=== PATIENT | male | born 1975 | race Caucasian/White ===

== ENCOUNTER 2017-05-04 07:22 | Inpatient (IN) | payer MEDICAID ==
--- NOTE | 2017-05-04 07:31 | ER Document Report ---
ED Dizziness/Weakness - General Stated Complaint: POSSIBLE OVERDOSE Time Seen by Provider: 05/04/17 07:28 Mode of Arrival: Medic Information source: Patient Notes: 41yo male disability for epilepsia c/o weakness in arms and legs, dizzy when he sits up, scarey feeling scared. Fell forward in house onto concrete slab this morning. His alled the rescue squad. Had a spell yesterday afternoon felt he was going to have a seizure-dizziness which he attributes to going to have a seizure. [phone]. Took 4 extra 200mg tegretol since yesterday afternoon. Fell out of bed last night and hit right side of face. Drinks 12 pack about every 3 days, night before last. Hx non compliance with his medication. TRAVEL OUTSIDE OF THE [place] IN LAST 30 DAYS: No - Related Data Allergies/Adverse Reactions: Shellfish * [Shellfish] Adverse Reaction (Verified 09/23/15 14:34) Past Medical History - General Information source: Patient - Social History Smoking Status: Current Every Day Smoker Frequency of alcohol use: every 3 days Lives with: Spouse/Significant other Family History: Reviewed & Not Pertinent Pulmonary Medical History: Reports: Hx Asthma Neurological Medical History: Reports: Hx Seizures Surgical Hx: Negative - Immunizations Hx Diphtheria, Pertussis, Tetanus Vaccination: Yes Review of Systems - Review of Systems Constitutional: No symptoms reported EENT: No symptoms reported Cardiovascular: No symptoms reported Respiratory: No symptoms reported Gastrointestinal: No symptoms reported Genitourinary: No symptoms reported Male Genitourinary: No symptoms reported Musculoskeletal: No symptoms reported Skin: No symptoms reported Hematologic/Lymphatic: No symptoms reported Neurological/Psychological: See HPI Physical Exam - Vital signs Vitals: Pulse Ox 97 05/04/17 07:25 Interpretation: Normal - General General appearance: Alert, Other - looks dry - HEENT Head: Normocephalic, Atraumatic Eyes: Normal Conjunctiva: Normal Pupils: PERRL Mucous membranes: Dry Pharynx: Normal Neck: Supple. No: Lymphadenopathy - Respiratory Respiratory status: No respiratory distress Chest status: Nontender Breath sounds: Normal Chest palpation: Normal - Cardiovascular Rhythm: Regular Heart sounds: Normal auscultation Murmur: No - Abdominal Inspection: Normal Distension: No distension Bowel sounds: Normal Tenderness: Nontender. No: Tender Organomegaly: No organomegaly - Back Back: Normal, Nontender - Extremities General upper extremity: Normal inspection, Nontender, Normal color, Normal ROM , Normal temperature General lower extremity: Normal inspection, Nontender, Normal color, Normal ROM , Normal temperature, Normal weight bearing. No: Jade's sign - Neurological Neuro grossly intact: Yes Cognition: Normal Orientation: AAOx4 Chas Coma Scale Eye Opening: Spontaneous Chas Coma Scale Verbal: Oriented [place] Coma Scale Motor: Obeys Commands Chas Coma Scale Total: 15 Speech: Normal Motor strength normal: LUE, RUE, LLE, RLE Sensory: Normal - Psychological Associated symptoms: Flat affect - slurred speech but oriented - Skin Skin Temperature: Warm Skin Moisture: Dry Skin Color: Normal Course - Re-evaluation Re-evalutation: 05/04/17 08:49 spoke with poisen control, do not give activated charcoal. Serial tegretaol levels to see peak and decline. monitor for 6 hours until level down to therapeutic. Cardiac monitoring, repeat ekg if abnl heartrate. benzso if seizure. here now, she thinks he only took 2 pills. 05/04/17 10:22 dr payton will admit to telemetry inpatient. no further orders. pt speech less slurred at this time. CT negative.2nd tegretol level is greater than 20 which is the highest that the lab will report out. - Vital Signs Vital signs: Temp Pulse Resp BP Pulse Ox 97.8 F 96 16 120/74 96 05/04/17 07:28 05/04/17 07:28 05/04/17 09:41 05/04/17 09:41 05/04/17 09:41 - Laboratory Result Diagrams: 05/04/17 07:28 05/04/17 07:28 Laboratory results interpreted by me: 05/04/17 05/04/17 05/04/17 07:28 07:28 07:28 WBC 11.7 H RDW 14.3 H Seg Neutrophils % 84.9 H Lymphocytes % 9.0 L Absolute Neutrophils 9.9 H Sodium 134.9 L Calcium 8.2 L Urine Ketones Salicylates Acetaminophen Carbamazepine > 20.0 H* 05/04/17 05/04/17 05/04/17 07:28 09:26 09:36 WBC RDW Seg Neutrophils % Lymphocytes % Absolute Neutrophils Sodium Calcium Urine Ketones TRACE H Salicylates < 1.0 L Acetaminophen < 10 L Carbamazepine > 20.0 H* Discharge - Discharge Clinical Impression: tegretol overdose Condition: Stable Disposition: ADMITTED INPATIENT Admitting Provider: Hospitalist Unit Admitted: Telemetry Referrals: LOCALMD,NO [Primary Care Provider] - Follow up as needed
[2017-05-04 07:39] LABS: ABSOLUTE BASOPHILS # (AUTO) 0.1 10^3/uL (0.0-0.2); ABSOLUTE LYMPHOCYTES (AUTO) 1.1 10^3/uL (0.5-4.7); ABSOLUTE MONOCYTES (AUTO) 0.6 10^3/uL (0.1-1.4); ABSOLUTE NEUT (AUTO) 9.9 10^3/uL (1.7-8.2); BASOPHILS % (AUTO) 0.6 % (0-2); EOSINOPHILS % (AUTO) 0.1 % (0-6); HEMATOCRIT 47.1 % (37.9-51.0); HEMOGLOBIN 16.1 g/dL (13.5-17.0); HGB HCT DIFFERENCE 1.2; MEAN CORPUSCULAR HEMOGLOBIN 30.5 pg (27.0-33.4); MEAN CORPUSCULAR HGB CONC 34.3 g/dL (32.0-36.0); MEAN CORPUSCULAR VOLUME 89 fl (80-97); MONOCYTES % (AUTO) 5.4 % (3-13); RED BLOOD COUNT 5.29 10^6/uL (4.35-5.55); RED CELL DISTRIBUTION WIDTH 14.3 % (11.5-14.0); SEGMENTED NEUTROPHILS % (AUTO) 84.9 % (42-78); WHITE BLOOD COUNT 11.7 10^3/uL (4.0-10.5)
[2017-05-04] MEDS ORDERED: NORMAL SALINE 1000 ML 1,000 ML IV ONE (07:39)
[2017-05-04 07:53] LABS: ALANINE AMINOTRANSFERASE 36 U/L (21-72); ALBUMIN 3.9 g/dL (3.5-5.0); ALKALINE PHOSPHATASE 63 U/L (38-126); ANION GAP 8 (5-19); ASPARTATE AMINO TRANSFERASE 29 U/L (17-59); BILIRUBIN,DIRECT 0.4 mg/dL (0.0-0.4); BILIRUBIN,TOTAL 0.6 mg/dL (0.2-1.3); BLOOD UREA NITROGEN 14 mg/dL (7-20); CALCIUM 8.2 mg/dL (8.4-10.2); CARBON DIOXIDE 27 mmol/L (22-30); CHLORIDE 100 mmol/L (98-107); CREATININE RESULT 0.64 mg/dL (0.52-1.25); GLUCOSE 109 mg/dL (75-110); POTASSIUM 3.8 mmol/L (3.6-5.0); SODIUM 134.9 mmol/L (137-145); TOTAL PROTEIN 6.4 g/dL (6.3-8.2)
--- NOTE | 2017-05-04 08:21 | RADIOLOGY REPORT (SQ) ---
EXAM DESCRIPTION: CT HEAD WITHOUT COMPLETED DATE/TIME: 05/04/2017 8:07 am REASON FOR STUDY: dizzy, fell out of bed, hir right side face. COMPARISON: None. TECHNIQUE: Axial images acquired through the brain without intravenous contrast. Images reviewed wi th bone, brain and subdural windows. Images stored on PACS. All CT scanners at this facility use dose modulation, iterative reconstruction, and/or weight based d osing when appropriate to reduce radiation dose to as low as reasonably achievable (ALARA). [facility]: Dose Right [facility]: CareDose [facility]: Dose Right [facility]: Teradose 4D [facility]: Smart Advanced ICU Care RADIATION DOSE: Up-to-date CT equipment and radiation dose reduction techniques were employed. CTDIv ol: 64.6 mGy. DLP: 1163 mGy-cm. mGy. LIMITATIONS: Motion artifact FINDINGS: VENTRICLES: Normal size and contour. CEREBRUM: No masses. No hemorrhage. No midline shift. Normal knott/white matter differentiation. N o evidence for acute infarction. Lacunar infarct right frontal deep periventricular white matter, ax ial image 21. CEREBELLUM: No masses. No hemorrhage. No alteration of density. No evidence for acute infarction. EXTRAAXIAL SPACES: No fluid collections. No masses. ORBITS AND GLOBE: No intra- or extraconal masses. Normal contour of globe without masses. CALVARIUM: No fracture. PARANASAL SINUSES: Opacified left maxillary sinus SOFT TISSUES: No mass or hematoma. OTHER: No other significant finding. IMPRESSION: Motion artifact No acute findings. Punctate low-attenuation right frontal deep periventricular white matter, likely old encephalomalacia No acute calvarial fracture Opacified left maxillary sinus TECHNICAL DOCUMENTATION: JOB ID: [id number] Quality ID # [id number]: Final reports with documentation of one or more dose reduction techniques (e.g., Au tomated exposure control, adjustment of the mA and/or kV according to patient size, use of iterative reconstruction technique) 2010 [employer]- All Rights Reserved
--- NOTE | 2017-05-04 08:46 | EKG REPORT ---
SEVERITY:- BORDERLINE ECG - SINUS RHYTHM PROBABLE LEFT ATRIAL ABNORMALITY : Confirmed by: Luanne Zhang 04-May-2017 08:45:22
[2017-05-04 09:35] LABS: TROPONIN I < 0.012 ng/mL
[2017-05-04 09:45] LABS: APPEARANCE,URINE CLEAR; BILIRUBIN,URINE NEGATIVE (NEGATIVE); GLUCOSE, URINE NEGATIVE (NEGATIVE); KETONES,URINE TRACE mg/dL (NEGATIVE); LEUKOCYTE ESTERASE,URINE NEGATIVE (NEGATIVE); NITRITE,URINE NEGATIVE (NEGATIVE); PROTEIN,URINE NEGATIVE (NEGATIVE); URINE SPECIFIC GRAVITY 1.018; UROBILINOGEN,URINE NEGATIVE mg/dL (<2.0)
[2017-05-04 10:03] LABS: URINE BARBITURATES SCREEN NEGATIVE; URINE METHADONE SCREEN NEGATIVE; URINE OPIATES LOW NEGATIVE; URINE PHENCYCLIDINE SCREEN NEGATIVE
[2017-05-04] MEDS ORDERED: ACETAMINOPHEN 325 MG TABLET PO PRN (10:36)
[2017-05-04] MEDS ORDERED: ALBUTEROL SULFATE HFA (90 MCG/PUFF) 8 GM MDI (1 MDI/ER DISP) IH PRN (10:46)
[2017-05-04] MEDS ORDERED: IPRATROPIUM/ALBUTEROL 0.5-2.5 MG/3 ML AMPUL NEB SCH (12:00)
[2017-05-04] MEDS ORDERED: NORMAL SALINE 1000 ML 2,000 ML IV ONE (12:11)
[2017-05-04] MEDS ORDERED: POTASSI CL 20 MEQ/50 ML RIDER 20 MEQ/50 ML RTUPB IV SCH (12:14)
[2017-05-04] MEDS ORDERED: ASPIRIN 81 MG TABLET, CHEWABLE PO ONE (12:16)
[2017-05-04] MEDS ORDERED: MAGNESIUM HYDROXIDE SUSP 30 ML UDCUP PO PRN (12:16)
[2017-05-04] MEDS ORDERED: TRAMADOL HCL 50 MG TABLET PO PRN (12:16)
[2017-05-04] MEDS ORDERED: ONDANSETRON HCL INJ/PF 4 MG/2 ML SDV IV PRN (12:16)
[2017-05-04] MEDS ORDERED: LABETALOL HCL INJ 20 MG/4 ML DISP.SYRIN IV PRN (12:16)
[2017-05-04] MEDS: NORMAL SALINE 1000 ML 1,000 ML IV PRN ×2 (12:24→22:53)
[2017-05-04] MEDS ORDERED: NICOTINE 21 MG/24 HR PATCH.TD24 TD PRN (12:41)
--- NOTE | 2017-05-04 12:58 | RADIOLOGY REPORT (SQ) ---
EXAM DESCRIPTION: CHEST SINGLE VIEW COMPLETED DATE/TIME: 05/04/2017 12:36 pm REASON FOR STUDY: rul wheezes COMPARISON: September 2005 EXAM PARAMETERS: NUMBER OF VIEWS: One view. TECHNIQUE: Single frontal radiographic view of the chest acquired. RADIATION DOSE: NA LIMITATIONS: None. FINDINGS: LUNGS AND PLEURA: No opacities, masses or pneumothorax. No pleural effusion. MEDIASTINUM AND HILAR STRUCTURES: No masses. Contour normal. HEART AND VASCULAR STRUCTURES: Heart normal in size. Normal vasculature. BONES: No acute findings. HARDWARE: None in the chest. OTHER: No other significant finding. IMPRESSION: NO ACUTE RADIOGRAPHIC FINDING IN THE CHEST. TECHNICAL DOCUMENTATION: JOB ID: [id number]
[2017-05-04] MEDS ORDERED: DOXYCYCLINE HYCLATE 100 MG TABLET PO ONE (13:00)
[2017-05-04] MEDS ORDERED: MAGNESIUM SULFATE/D5W 1 GM/100 ML RTUPB IV ONE (13:00)
--- NOTE | 2017-05-04 13:34 | RADIOLOGY REPORT (SQ) ---
EXAM DESCRIPTION: CAROTID DOPPLER COMPLETED DATE/TIME: 05/04/2017 1:21 pm REASON FOR STUDY: slurred speech COMPARISON: None. TECHNIQUE: Grayscale ultrasound, Doppler velocity and spectra, and color Doppler images acquired of the extra-cranial carotid and vertebral arteries. Images stored on PACS. LIMITATIONS: None. FINDINGS: RIGHT CAROTID CCA Velocities: 139 cm/s ICA Velocities Peak systolic 74cm/s. End diastolic 29cm/s. Proximal ICA/CCA peak systolic ratio 0.7. Spectra normal. No significant plaque. LEFT CAROTID CCA Velocities: 147 cm/s ICA Velocities Peak systolic 83cm/s. End diastolic 31cm/s. Proximal ICA/CCA peak systolic ratio 0.7. Spectra normal. No significant plaque. VERTEBRAL ARTERIES: Antegrade flow. Normal waveforms. SUBCLAVIAN ARTERIES: No finding. OTHER: No other significant finding. IMPRESSION: NO HEMODYNAMICALLY SIGNIFICANT STENOSIS. COMMENT: Quality ID #[id number]: Velocity criteria are extrapolated from the diameter data as defined by t he Society of Radiologists in Ultrasound Consensus Conference. Radiology 2003: 229; 340-346. TECHNICAL DOCUMENTATION: JOB ID: [id number] [employer]- All Rights Reserved
[2017-05-04] MEDS ORDERED: METHYLPREDNISOLONE INJ 40 MG/1 ML SDV IV SCH (14:00)
[2017-05-04 14:38] LABS: CREATINE KINASE MB 1.84 ng/mL (<4.55)
[2017-05-04 14:39] LABS: TROPONIN I < 0.012 ng/mL
[2017-05-04] MEDS: METHYLPREDNISOLONE INJ 125 MG/2 ML SDV IV SCH ×2 (15:27→21:50)
[2017-05-04] MEDS: POTASSI CL 20 MEQ/50 ML RIDER 20 MEQ/50 ML RTUPB IV SCH ×2 (15:27→18:05)
[2017-05-04] MEDS: HEPARIN SOD (PORCINE) 5,000 UNIT/ML 1 ML SYRINGE SUBCUT SCH ×2 (15:28→21:50)
[2017-05-04] MEDS: IPRATROPIUM/ALBUTEROL 0.5-2.5 MG/3 ML AMPUL NEB SCH ×2 (16:28→19:46)
[2017-05-04] MEDS ORDERED: LORAZEPAM INJ 2 MG/1 ML VIAL IV PRN (17:18)
--- NOTE | 2017-05-04 17:23 | PDOC H&P ---
History of Present Illness Admission Date/PCP: 05/04/17 10:36 History of Present Illness: MARTA GARCIA is a 41 year old male who has a history of seizure disorder, COPD, and noncompliance presents to the emergency department with complaints of dizziness and weakness. Patient was feeling dizzy and took extra Tegretol as he feels that this is a precursor often to his seizure disorder. Patient according to his is quite noncompliant and review of his medication reveals that his last bottle of Tegretol was filled in November of this year. She reports that he often will not door forgets to take his medication but that his seizures have been well controlled since he has been on Tegretol. After taking additional dose of Tegretol this morning, he became dizzy, weak, with slurred speech. In the emergency department patient seemed to improve after receiving just 1 L of IV fluids. His QRS was less than 110 ms at 104. He is referred to the hospitalist for carbamazepine level greater than 20. Past Medical History Pulmonary Medical History: Reports: Chronic Obstructive Pulmonary Disease (COPD) Neurological Medical History: Reports: Seizures Past Surgical History Past Surgical History: Reports: None Social History Lives with: Spouse/Significant other Smoking Status: Current Every Day Smoker Cigarettes Packs Per Day: 1 Cigars Per Day: 1 Frequency of Alcohol Use: Heavy Amount of Alcoholic Beverages Per Day: patient drinks heavily several days a week Hx Recreational Drug Use: No Hx Prescription Drug Abuse: No - Advance Directive Resuscitation Status: Full Code Surrogate healthcare decision maker:: gm merrill, Family History Family History: DM Parental Family History Reviewed: Yes Children Family History Reviewed: Yes Sibling(s) Family History Reviewed.: Yes Medication/Allergy Home Medications: Albuterol Sulfate [Proair Hfa] 2 puff IH Q6HP PRN 05/04/17 Carbamazepine [Tegretol] 200 mg PO Q12 05/04/17 Allergies/Adverse Reactions: phenytoin [From Dilantin] Adverse Reaction (Severe, Verified 05/04/17 17:05) Agranulocystosis Shellfish * [Shellfish] Adverse Reaction (Verified 09/23/15 14:34) Review of Systems Constitutional: ABSENT: chills, fever(s), headache(s), weight gain, weight loss Eyes: ABSENT: visual disturbances Ears: ABSENT: hearing changes Cardiovascular: ABSENT: chest pain, dyspnea on exertion, edema, orthropnea, palpitations Respiratory: PRESENT: cough, sputum. ABSENT: dyspnea, hemoptysis Gastrointestinal: ABSENT: abdominal pain, constipation, diarrhea, hematemesis, hematochezia, nausea, vomiting Genitourinary: ABSENT: dysuria, hematuria Musculoskeletal: ABSENT: joint swelling Integumentary: ABSENT: rash, wounds Neurological: PRESENT: as per HPI, abnormal gait, abnormal speech, confusion, dizziness, lack of coordination. ABSENT: focal weakness, syncope Psychiatric: ABSENT: anxiety, depression, homidical ideation, suicidal ideation Endocrine: ABSENT: cold intolerance, heat intolerance, polydipsia, polyuria Hematologic/Lymphatic: ABSENT: easy bleeding, easy bruising Physical Exam Vital Signs: Temp Pulse Resp BP Pulse Ox 98.3 F 94 16 122/72 98 05/04/17 15:24 05/04/17 15:24 05/04/17 15:24 05/04/17 15:24 05/04/17 15:24 Intake & Output 05/03/17 05/04/17 05/05/17 06:59 06:59 06:59 Weight 95.527 kg General appearance: PRESENT: mild distress, obese, well-developed, well- nourished Head exam: PRESENT: atraumatic, normocephalic Eye exam: PRESENT: conjunctival injection - right lateral conjunctival hemorrhage, conjunctiva pink, EOMI, PERRLA. ABSENT: scleral icterus Ear exam: PRESENT: normal external ear exam Mouth exam: PRESENT: dry mucosa, neck supple, tongue midline Teeth exam: PRESENT: dental caries Neck exam: PRESENT: full ROM. ABSENT: carotid bruit, JVD, lymphadenopathy, meningismus, tenderness, thyromegaly, tracheal deviation Respiratory exam: PRESENT: prolonged expiratory phas, symmetrical, unlabored, wheezes - RUL. ABSENT: crackles, rales, rhonchi, tachypnea Cardiovascular exam: PRESENT: RRR, +S1, +S2. ABSENT: diastolic murmur, gallop, rubs, systolic murmur Pulses: PRESENT: normal dorsalis pedis pul Vascular exam: PRESENT: normal capillary refill GI/Abdominal exam: PRESENT: normal bowel sounds, soft. ABSENT: distended, firm , guarding, mass, organolmegaly, rebound, rigid, tenderness Rectal exam: PRESENT: deferred Extremities exam: PRESENT: full ROM. ABSENT: calf tenderness, clubbing, pedal edema, tenderness Neurological exam: PRESENT: alert, awake, oriented to person, oriented to place , oriented to time, oriented to situation, abnormal gait, other - slightly slurred speech, nystagmus +FTN with past pointing bilateral +Heel to espinoza bilaterally. ABSENT: CN II-XII grossly intact - nystagmus, motor sensory deficit, normal gait Psychiatric exam: PRESENT: anxious, appropriate affect, normal mood. ABSENT: homicidal ideation, suicidal ideation Skin exam: PRESENT: dry, intact, warm. ABSENT: cyanosis, rash Results Laboratory Results: 05/04/17 05/04/17 13:48 13:48 Creatine Kinase 216 H CK-MB (CK-2) 1.84 Troponin I < 0.012 05/04/17 05/04/17 05/04/17 07:28 07:28 07:28 WBC 11.7 H Hgb 16.1 Hct 47.1 Plt Count 206 Sodium 134.9 L BUN 14 Creatinine 0.64 Calcium 8.2 L TSH Free T4 Urine Ketones Urine WBC (Auto) Salicylates Urine Opiates Screen Urine Methadone Screen Acetaminophen Ur Barbiturates Screen Carbamazepine > 20.0 H* Ur Phencyclidine Scrn Ur Amphetamines Screen U Benzodiazepines Scrn Urine Cocaine Screen U Marijuana (THC) Screen Serum Alcohol 05/04/17 05/04/17 05/04/17 07:28 07:28 07:28 WBC Hgb Hct Plt Count Sodium BUN Creatinine Calcium TSH 0.39 L Free T4 Urine Ketones Urine WBC (Auto) Salicylates < 1.0 L Urine Opiates Screen Urine Methadone Screen Acetaminophen < 10 L Ur Barbiturates Screen Carbamazepine Ur Phencyclidine Scrn Ur Amphetamines Screen U Benzodiazepines Scrn Urine Cocaine Screen U Marijuana (THC) Screen Serum Alcohol < 10 05/04/17 05/04/17 05/04/17 07:28 09:26 09:26 WBC Hgb Hct Plt Count Sodium BUN Creatinine Calcium TSH Free T4 1.10 Urine Ketones TRACE H Urine WBC (Auto) 0 Salicylates Urine Opiates Screen NEGATIVE Urine Methadone Screen NEGATIVE Acetaminophen Ur Barbiturates Screen NEGATIVE Carbamazepine Ur Phencyclidine Scrn NEGATIVE Ur Amphetamines Screen NEGATIVE U Benzodiazepines Scrn NEGATIVE Urine Cocaine Screen NEGATIVE U Marijuana (THC) Screen NEGATIVE Serum Alcohol Impressions: Chest X-Ray 05/04/17 00:00 IMPRESSION: NO ACUTE RADIOGRAPHIC FINDING IN THE CHEST. Head CT 05/04/17 07:44 IMPRESSION: Motion artifact No acute findings. Punctate low-attenuation right frontal deep periventricular white matter, likely old encephalomalacia No acute calvarial fracture Opacified left maxillary sinus Carotid Doppler Study 05/04/17 12:19 IMPRESSION: NO HEMODYNAMICALLY SIGNIFICANT STENOSIS. Status: Imported from PACS Assessment & Plan - Diagnosis (1) Carbamazepine overdose of undetermined intent Qualifiers: Encounter type: initial encounter Qualified Code(s): T42.1X4A - Poisoning by iminostilbenes, undetermined, initial encounter Is this a current diagnosis for this admission?: Yes Plan: Based on discussion with and patient, feel this is likely unintentional. Place patient on telemetry and continue to monitor QRS. If patient's QRS becomes greater than 110 ms, will bolus with sodium bicarbonate. At this time, feel that much of his increased levels due to acute ingestion and will improve with holding this medication. Use Ativan for seizures as needed. Seizure precautions. Will monitor patient's mental status and ability to maintain his own airway. Continue supportive care. Poison control has been contacted and appreciate their care in this situation. Although based on patient's general poor health, have concerns that this could have been a CVA and will obtain an MRI. (2) Seizure disorder Is this a current diagnosis for this admission?: Yes Plan: Seizure precautions Ativan prn (3) COPD with exacerbation Is this a current diagnosis for this admission?: Yes Plan: Place patient on doxycycline and prednisone scheduled nebulized treatments (4) Alcohol abuse Is this a current diagnosis for this admission?: Yes Plan: Place on thiamine and folic acid Monitor for arrhythmia (5) Hyponatremia with extracellular fluid depletion Is this a current diagnosis for this admission?: Yes Plan: Continue IV fluids at this time. Patient is mildly dehydrated. (6) Tobacco abuse Is this a current diagnosis for this admission?: Yes Plan: Encouraged to stop greater than 3 min Nicotine patch prn (7) Medical non-compliance Is this a current diagnosis for this admission?: Yes Plan: Patient and admit to his non-compliance (8) Obesity (BMI 30.0-34.9) Is this a current diagnosis for this admission?: Yes - Time Time Spent: 50 to 70 Minutes Medications reviewed and adjusted accordingly: Yes Anticipated discharge: Home Within: within 48 hours, within 72 hours - Inpatient Certification Based on my medical assessment, after consideration of the patient's comorbidities, presenting symptoms, or acuity I expect that the services needed warrant INPATIENT care.: Yes I certify that my determination is in accordance with my understanding of Medicare's requirements for reasonable and necessary INPATIENT services [42 CFR 412.3e].: Yes Medical Necessity: Need For IV Fluids, Need For Continuous Telemetry Monitoring , Need for Neurological Checks Post Hospital Care: D/C Claims Collector Documentation
--- NOTE | 2017-05-04 17:33 | RADIOLOGY REPORT (SQ) ---
EXAM DESCRIPTION: MRI HEAD WITHOUT COMPLETED DATE/TIME: 05/04/2017 5:19 pm REASON FOR STUDY: nystagmus, cerebellar signs, slurred speech COMPARISON: CT brain 05/04/2017 TECHNIQUE: Multiplanar imaging includes non-contrasted T1, T2, FLAIR, and diffusion with ADC map seq uences. Images stored on PACS. LIMITATIONS: None. FINDINGS: ANATOMY: No developmental anomalies. Normal vascular flow voids. Pituitary fossa normal. CSF SPACES: Normal in size and contour. No hemorrhage. CEREBRUM: No MRI evidence of acute cerebral infarct. No acute intracranial hemorrhage, mass effect, or midline shift. There is an old punctate focus of white matter decreased T1 and bright T2/FLAIR si gnal on axial image 18. This correlates with a punctate focus of encephalomalacia on CT exam 05/04/20 17. This likely represents a tiny lacunar infarct or minimal gliosis along perivascular spaces. POSTERIOR FOSSA: No signal alteration. No hemorrhage. No edema, masses or mass effect. Internal riana tory canals, cerebello-pontine angles, mastoids normal. DIFFUSION IMAGING: Negative for acute or sub-acute infarction. ORBITS: No masses. Globes normal. PARANASAL SINUSES: Opacified left maxillary sinus, likely chronic. OTHER: No other significant finding. IMPRESSION: No MRI evidence of acute ischemic change. In particular, no posterior fossa acute infar ct or hemorrhage is present. Single focus white matter chronic altered signal in the right frontal deep periventricular region, ei ther tiny lacunar infarct or gliosis along perivascular spaces EVIDENCE OF ACUTE STROKE: NO. TECHNICAL DOCUMENTATION: JOB ID: [id number] [employer]- All Rights Reserved
[2017-05-04] MEDS ORDERED: THIAMINE HCL 100 MG TABLET PO ONE (18:00)
[2017-05-04] MEDS ORDERED: FOLIC ACID 1 MG TABLET PO ONE (18:00)
[2017-05-04] MEDS: DOCUSATE SODIUM 100 MG CAPSULE PO SCH (18:05)
--- NOTE | 2017-05-04 20:23 | EKG REPORT ---
SEVERITY:- NORMAL ECG - SINUS RHYTHM : Confirmed by: Luanne Zhang 04-May-2017 20:23:14
[2017-05-04 20:25] LABS: CREATINE KINASE MB 1.44 ng/mL (<4.55)
[2017-05-04 20:32] LABS: TROPONIN I < 0.012 ng/mL
[2017-05-04] MEDS: FAMOTIDINE 20 MG TABLET PO SCH (21:48)
[2017-05-04] MEDS: DOXYCYCLINE HYCLATE 100 MG TABLET PO SCH (21:48)
[2017-05-04] MEDS: FLUTICASONE NASAL SPRAY 50 MCG/SPRY 120 SPRAY/16 GM NASL SCH (21:50)
[2017-05-04] MEDS ORDERED: ATORVASTATIN CALCIUM 40 MG TABLET PO SCH (22:00)
[2017-05-04] MEDS ORDERED: LORATADINE 10 MG TABLET PO SCH (22:00)
[2017-05-05 02:32] LABS: CREATINE KINASE MB 0.97 ng/mL (<4.55)
[2017-05-05 02:35] LABS: TROPONIN I < 0.012 ng/mL
[2017-05-05] MEDS: HEPARIN SOD (PORCINE) 5,000 UNIT/ML 1 ML SYRINGE SUBCUT SCH (05:34)
[2017-05-05] MEDS: METHYLPREDNISOLONE INJ 125 MG/2 ML SDV IV SCH (05:34)
[2017-05-05 06:30] LABS: ABSOLUTE BASOPHILS # (AUTO) 0.1 10^3/uL (0.0-0.2); ABSOLUTE MONOCYTES (AUTO) 0.4 10^3/uL (0.1-1.4); ABSOLUTE NEUT (AUTO) 5.9 10^3/uL (1.7-8.2); BASOPHILS % (AUTO) 1.2 % (0-2); EOSINOPHILS % (AUTO) 0.1 % (0-6); HEMATOCRIT 43.1 % (37.9-51.0); HEMOGLOBIN 14.6 g/dL (13.5-17.0); HGB HCT DIFFERENCE 0.7; LYMPHOCYTES % (AUTO) 13.7 % (13-45); MEAN CORPUSCULAR HEMOGLOBIN 30.7 pg (27.0-33.4); MEAN CORPUSCULAR HGB CONC 33.8 g/dL (32.0-36.0); MEAN CORPUSCULAR VOLUME 91 fl (80-97); MONOCYTES % (AUTO) 5.5 % (3-13); RED BLOOD COUNT 4.74 10^6/uL (4.35-5.55); RED CELL DISTRIBUTION WIDTH 14.4 % (11.5-14.0); SEGMENTED NEUTROPHILS % (AUTO) 79.5 % (42-78); WHITE BLOOD COUNT 7.5 10^3/uL (4.0-10.5)
[2017-05-05 06:41] LABS: ALANINE AMINOTRANSFERASE 38 U/L (21-72); ALBUMIN 3.4 g/dL (3.5-5.0); ALKALINE PHOSPHATASE 57 U/L (38-126); ANION GAP 6 (5-19); ASPARTATE AMINO TRANSFERASE 20 U/L (17-59); BILIRUBIN,DIRECT 0.4 mg/dL (0.0-0.4); BILIRUBIN,TOTAL 0.6 mg/dL (0.2-1.3); BLOOD UREA NITROGEN 5 mg/dL (7-20); CALCIUM 8.7 mg/dL (8.4-10.2); CARBON DIOXIDE 26 mmol/L (22-30); CHLORIDE 106 mmol/L (98-107); CHOLESTEROL 146.21 mg/dL (0-200); CREATININE RESULT 0.63 mg/dL (0.52-1.25); Direct HDL 87 mg/dL (>40); GLUCOSE 121 mg/dL (75-110); MAGNESIUM 2.2 mg/dL (1.6-2.3); POTASSIUM 3.7 mmol/L (3.6-5.0); SODIUM 138.2 mmol/L (137-145); TOTAL PROTEIN 5.7 g/dL (6.3-8.2); TRIGLYCERIDES 43 mg/dL (<150)
[2017-05-05] MEDS: NORMAL SALINE 1000 ML 1,000 ML IV PRN (06:43)
[2017-05-05 06:52] LABS: DIRECT LDL 43 mg/dL (<100)
[2017-05-05] MEDS: IPRATROPIUM/ALBUTEROL 0.5-2.5 MG/3 ML AMPUL NEB SCH ×2 (08:01→12:07)
[2017-05-05] MEDS: FAMOTIDINE 20 MG TABLET PO SCH (10:00)
[2017-05-05] MEDS ORDERED: ASPIRIN 325 MG TABLET, ENT COATED PO SCH (10:00)
[2017-05-05] MEDS ORDERED: FOLIC ACID 1 MG TABLET PO SCH (10:00)
[2017-05-05] MEDS ORDERED: THIAMINE HCL 100 MG TABLET PO SCH (10:00)
[2017-05-05] MEDS: DOCUSATE SODIUM 100 MG CAPSULE PO SCH (10:57)
[2017-05-05] MEDS: FLUTICASONE NASAL SPRAY 50 MCG/SPRY 120 SPRAY/16 GM NASL SCH (11:00)
[2017-05-05] MEDS: DOXYCYCLINE HYCLATE 100 MG TABLET PO SCH (11:01)
[2017-05-05 11:41] VITALS: BP 120/70
--- NOTE | 2017-05-05 17:00 | PDOC DISCHARGE SUMMARY ---
General - Admit/Disc Date/PCP Admission Date/Primary Care Provider: 05/04/17 10:36 Discharge Date: 05/05/17 - Discharge Diagnosis (1) Carbamazepine overdose of undetermined intent Is this a current diagnosis for this admission?: Yes (2) Seizure disorder Is this a current diagnosis for this admission?: Yes (3) COPD with exacerbation Is this a current diagnosis for this admission?: Yes (4) Alcohol abuse Is this a current diagnosis for this admission?: Yes (5) Hyponatremia with extracellular fluid depletion Is this a current diagnosis for this admission?: Yes (6) Tobacco abuse Is this a current diagnosis for this admission?: Yes (7) Medical non-compliance Is this a current diagnosis for this admission?: Yes (8) Obesity (BMI 30.0-34.9) Is this a current diagnosis for this admission?: Yes - Additional Information Resuscitation Status: Full Code Discharge Diet: Cardiac Discharge Activity: Activity As Tolerated, No Driving Home Medications: Albuterol Sulfate [Proair HFA] 2 puff IH Q6HP PRN 05/04/17 Carbamazepine [Tegretol] 200 mg PO Q12 05/04/17 Albuterol Sulfate [Ventolin Hfa 8 gm Mdi (1 Mdi/ER Disp)] 2 puff IH Q6HP PRN #1 inhaler 05/05/17 Aspirin [Ecotrin 325 mg EC Tablet] 325 mg PO DAILY #90 tabec 05/05/17 Doxycycline Hyclate [Vibramycin 100 mg Tablet] 100 mg PO Q12 #20 tablet Fluticasone Propionate [Flonase Nasal Cerulean 50 Mcg/Cerulean 16 gm] 1 spray NASL Q12 #1 bot 05/05/17 Folic Acid [Folvite 1 mg Tablet] 1 mg PO DAILY #90 tablet 05/05/17 Ipratropium/Albuterol Sulfate [Duoneb 3 ml Ampul] 3 ml [facility] [id number] vial.neb Loratadine [Claritin 10 mg Tablet] 10 mg PO QHS #90 tablet 05/05/17 Prednisone 10 mg PO ASDIR PRN #1 tab.ds.pk 05/05/17 Thiamine HCl [Thiamine 100 mg Tablet] 100 mg PO DAILY #90 tablet 05/05/17 History of Present Illness History of Present Illness: MARTA GARCIA is a 41 year old male who has a history of seizure disorder, COPD, and noncompliance presents to the emergency department with complaints of dizziness and weakness. Patient was feeling dizzy and took extra Tegretol as he feels that this is a precursor often to his seizure disorder. Patient according to his is quite noncompliant and review of his medication reveals that his last bottle of Tegretol was filled in November of this year. She reports that he often will not door forgets to take his medication but that his seizures have been well controlled since he has been on Tegretol. After taking additional dose of Tegretol this morning, he became dizzy, weak, with slurred speech. In the emergency department patient seemed to improve after receiving just 1 L of IV fluids. His QRS was less than 110 ms at 104. He is referred to the hospitalist for carbamazepine level greater than 20. Hospital Course Hospital Course: Patient was monitored for any worsening of his condition including seizure or respiratory depression. Patient had none of these. Patient's QRS remained less than 110 ms. His carbamazepine level decreased to 8 and he was able to ambulate unassisted without any ataxia. MRI of the head revealed no acute infarction. Carotid Dopplers were normal. Patient COPD exacerbation improved with Solu-Medrol and nebulized treatments. Patient was advised to stop drinking alcohol and to stop smoking. He was advised to take his medications as they are prescribed to him and not in any other fashion. He is advised to follow with his primary care doctor within the week. Physical Exam Vital Signs: Temp Pulse Resp BP Pulse Ox 97.5 F 71 16 120/70 96 05/05/17 11:38 05/05/17 11:38 05/05/17 11:38 05/05/17 11:38 05/05/17 11:38 Intake & Output 05/04/17 05/05/17 05/06/17 06:59 06:59 06:59 Intake Total 4577 Output Total 2100 Balance 2477 Weight 96.1 kg Exam: General: Awake alert and oriented x3, no acute respiratory distress HEENT: Abrasion under right eye, PERRL, EOMI, oropharynx is moist, pink, no scleral icterus, no conjunctival injection Neck: No JVD, trachea midline Chest: Prolonged expiratory phase, clear to auscultation bilaterally, no wheezes rhonchi or rales CV: Regular rate and rhythm, normal S1 and S2, no murmur, rub, or gallop Abdomen: Soft, nontender to palpation, nondistended, active bowel sounds; no rebound, rigidity, or guarding Extremities: No cyanosis, clubbing or edema Neuro: Cranial nerves II through XII are grossly intact without focal deficits; awake alert and oriented x3 Psych: Normal mood and affect Results Laboratory Results: 05/05/17 06:21 05/05/17 06:21 05/05/17 05/05/17 06:21 06:21 WBC 7.5 RBC 4.74 Hgb 14.6 Hct 43.1 MCV 91 MCH 30.7 MCHC 33.8 RDW 14.4 H Plt Count 193 Seg Neutrophils % 79.5 H Lymphocytes % 13.7 Monocytes % 5.5 Eosinophils % 0.1 Basophils % 1.2 Absolute Neutrophils 5.9 Absolute Lymphocytes 1.0 Absolute Monocytes 0.4 Absolute Eosinophils 0.0 Absolute Basophils 0.1 Sodium 138.2 Potassium 3.7 Chloride 106 Carbon Dioxide 26 Anion Gap 6 BUN 5 L Creatinine 0.63 Est GFR ( Amer) > 60 Est GFR (Non-Af Amer) > 60 Glucose 121 H Calcium 8.7 Phosphorus 4.0 Magnesium 2.2 Total Bilirubin 0.6 AST 20 ALT 38 Alkaline Phosphatase 57 Total Protein 5.7 L Albumin 3.4 L Triglycerides 43 Cholesterol 146.21 LDL Cholesterol Direct 43 VLDL Cholesterol 9.0 L HDL Cholesterol 87 05/04/17 05/04/17 05/04/17 13:48 13:48 19:45 Creatine Kinase 216 H 222 H CK-MB (CK-2) 1.84 Troponin I < 0.012 05/04/17 05/05/17 05/05/17 19:45 01:36 01:36 Creatine Kinase 174 H CK-MB (CK-2) 1.44 0.97 Troponin I < 0.012 < 0.012 Impressions: Chest X-Ray 05/04/17 00:00 IMPRESSION: NO ACUTE RADIOGRAPHIC FINDING IN THE CHEST. Head MRI 05/04/17 00:00 IMPRESSION: No MRI evidence of acute ischemic change. In particular, no posterior fossa acute infarct or hemorrhage is present. Single focus white matter chronic altered signal in the right frontal deep periventricular region, either tiny lacunar infarct or gliosis along perivascular spaces EVIDENCE OF ACUTE STROKE: NO. Head CT 05/04/17 07:44 IMPRESSION: Motion artifact No acute findings. Punctate low-attenuation right frontal deep periventricular white matter, likely old encephalomalacia No acute calvarial fracture Opacified left maxillary sinus Carotid Doppler Study 05/04/17 12:19 IMPRESSION: NO HEMODYNAMICALLY SIGNIFICANT STENOSIS. Qualifiers PATEINT BEING DISCHARGED WITH ANY OF THE FOLLOWING DIAGNOSIS?: No Plan Time Spent: Less than 30 Minutes
== END 2017-05-05 12:30 | disposition home or self-care (01) | DRG 918 ==
LOC: ER 07:22 → EH 10:36 → UNDOADMIN 11:00 → EH 11:00 → 3S 13:21
PROVIDERS: ADMIT Family Medicine; ATTEND Family Medicine
PROC: 3E0234Z Introduction of Serum, Toxoid and Vaccine into Muscle, Percutaneous Approach (ICD-10-PCS; principal; 2017-05-04)
DX: T42.1X4A Poisoning by iminostilbenes, undetermined, initial encounter (principal); J44.1 Chronic obstructive pulmonary disease with (acute) exacerbation; E87.1 Hypo-osmolality and hyponatremia; G40.909 Epilepsy, unspecified, not intractable, without status epilepticus; F10.10 Alcohol abuse, uncomplicated; Y90.0 Blood alcohol level of less than 20 mg/100 ml; F17.210 Nicotine dependence, cigarettes, uncomplicated; E66.9 Obesity, unspecified; Z68.30 Body mass index [BMI] 30.0-30.9, adult; W01.0XXA Fall on same level from slipping, tripping and stumbling without subsequent striking against object, initial encounter; Y92.019 Unspecified place in single-family (private) house as the place of occurrence of the external cause; W06.XXXA Fall from bed, initial encounter; Y92.013 Bedroom of single-family (private) house as the place of occurrence of the external cause; Z91.013 Allergy to seafood; Z91.14 Patient's other noncompliance with medication regimen; Z79.82 Long term (current) use of aspirin; Z79.899 Other long term (current) drug therapy; Z88.8 Allergy status to other drugs, medicaments and biological substances
CPT/HCPCS: 36415; 70450; 70551; 71010; 80053; 80061; 80156; 80307; 81001; 82550; 82553; 83036; 83735; 84100; 84439; 84443; 84484; 85025; 93005; 93010; 93880; 94640; 96360; 99285; J1644; J2930; J3475; J3480; J3490; J7030; J7620

== ENCOUNTER 2018-06-14 14:47 | Emergency (ER) | payer MEDICAID ==
[2018-06-14] MEDS ORDERED: NORMAL SALINE 1000 ML 1,000 ML IV ONE (15:49)
[2018-06-14 15:55] LABS: ABSOLUTE BASOPHILS # (AUTO) 0.1 10^3/uL (0.0-0.2); ABSOLUTE EOSINOPHILS # (AUTO) 0.1 10^3/uL (0.0-0.6); ABSOLUTE LYMPHOCYTES (AUTO) 1.7 10^3/uL (0.5-4.7); ABSOLUTE MONOCYTES (AUTO) 0.8 10^3/uL (0.1-1.4); ABSOLUTE NEUT (AUTO) 6.7 10^3/uL (1.7-8.2); BASOPHILS % (AUTO) 0.7 % (0-2); EOSINOPHILS % (AUTO) 0.8 % (0-6); HEMATOCRIT 46.3 % (37.9-51.0); HEMOGLOBIN 15.8 g/dL (13.5-17.0); LYMPHOCYTES % (AUTO) 17.8 % (13-45); MEAN CORPUSCULAR HEMOGLOBIN 31.1 pg (27.0-33.4); MEAN CORPUSCULAR HGB CONC 34.1 g/dL (32.0-36.0); MEAN CORPUSCULAR VOLUME 91 fl (80-97); MONOCYTES % (AUTO) 8.8 % (3-13); PLATELET COUNT 235 10^3/uL (150-450); RED BLOOD COUNT 5.07 10^6/uL (4.35-5.55); SEGMENTED NEUTROPHILS % (AUTO) 71.9 % (42-78); TOTAL CELLS COUNTED % (AUTO) 100 %; WHITE BLOOD COUNT 9.3 10^3/uL (4.0-10.5)
[2018-06-14] MEDS ORDERED: CARBAMAZEPINE 200 MG TABLET PO ONE (15:55)
[2018-06-14] MEDS ORDERED: LORAZEPAM INJ 2 MG/1 ML VIAL IV ONE (15:56)
[2018-06-14] MEDS ORDERED: THIAMINE HCL 100 MG in NORMAL SALINE 50 ML IV ONE (15:56)
[2018-06-14] MEDS ORDERED: DIPH/PERTUSS(ACELL)/TETANUS VAC/PF 0.5 ML SYR (>=10YO) IM ONE (15:57)
[2018-06-14 16:01] LABS: ALANINE AMINOTRANSFERASE 30 U/L (21-72); ALBUMIN 4.4 g/dL (3.5-5.0); ALKALINE PHOSPHATASE 58 U/L (38-126); ANION GAP 11 (5-19); ASPARTATE AMINO TRANSFERASE 35 U/L (17-59); BILIRUBIN,DIRECT 0.5 mg/dL (0.0-0.4); BILIRUBIN,TOTAL 0.7 mg/dL (0.2-1.3); BLOOD UREA NITROGEN 14 mg/dL (7-20); CALCIUM 9.4 mg/dL (8.4-10.2); CARBON DIOXIDE 25 mmol/L (22-30); CHLORIDE 101 mmol/L (98-107); GLUCOSE 100 mg/dL (75-110); POTASSIUM 4.8 mmol/L (3.6-5.0); SODIUM 137.1 mmol/L (137-145)
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
--- NOTE | 2018-06-14 16:40 | RADIOLOGY REPORT (SQ) ---
EXAM DESCRIPTION: CT HEAD WITHOUT COMPLETED DATE/TIME: 06/14/2018 4:28 pm REASON FOR STUDY: delta ms COMPARISON: 05/04/2017 TECHNIQUE: Axial images acquired through the brain without intravenous contrast. Images reviewed wi th bone, brain and subdural windows. Additional sagittal and coronal reconstructions were generated. Images stored on PACS. All CT scanners at this facility use dose modulation, iterative reconstruction, and/or weight based d osing when appropriate to reduce radiation dose to as low as reasonably achievable (ALARA). [facility]: Dose Right [facility]: CareDose [facility]: Dose Right [facility]: Teradose 4D [facility]: Scratch Hard RADIATION DOSE: CT Rad equipment meets quality standard of care and radiation dose reduction techniq ues were employed. CTDIvol: 53.2 mGy. DLP: 964 mGy-cm. mGy. LIMITATIONS: None. FINDINGS: VENTRICLES: Normal size and contour. CEREBRUM: No masses. No hemorrhage. No midline shift. No evidence for acute infarction. Normal gra y/white matter differentiation. No areas of low density in the white matter. CEREBELLUM: No masses. No hemorrhage. No alteration of density. No evidence for acute infarction. EXTRAAXIAL SPACES: No fluid collections. No masses. ORBITS AND GLOBE: No intra- or extraconal masses. Normal contour of globe without masses. CALVARIUM: No fracture. PARANASAL SINUSES: Chronic opacification left maxillary sinus. SOFT TISSUES: No mass or hematoma. OTHER: No other significant finding. IMPRESSION: NORMAL BRAIN CT WITHOUT CONTRAST. EVIDENCE OF ACUTE STROKE: NO. COMMENT: Quality ID # 436: Final reports with documentation of one or more dose reduction techniques (e.g., Automated exposure control, adjustment of the mA and/or kV according to patient size, use of iterative reconstruction technique) TECHNICAL DOCUMENTATION: JOB ID: [id number] [employer]- All Rights Reserved Reading location - IP/workstation name: [email or web address]
--- NOTE | 2018-06-14 16:46 | RADIOLOGY REPORT (SQ) ---
EXAM DESCRIPTION: ANKLE LEFT COMPLETE COMPLETED DATE/TIME: 06/14/2018 4:36 pm REASON FOR STUDY: left ankle injury COMPARISON: None. NUMBER OF VIEWS: Four views. TECHNIQUE: AP, lateral, and two oblique radiographic images acquired of the left ankle. LIMITATIONS: None. FINDINGS: MINERALIZATION: Normal. BONES: No acute fracture or dislocation. No worrisome bone lesions. JOINTS: No effusions. SOFT TISSUES: No soft tissue swelling. No foreign body. OTHER: No other significant finding. IMPRESSION: NEGATIVE STUDY OF THE LEFT ANKLE. NO RADIOGRAPHIC EVIDENCE OF ACUTE INJURY. TECHNICAL DOCUMENTATION: JOB ID: [id number] [employer]- All Rights Reserved Reading location - IP/workstation name: [email or web address]
--- NOTE | 2018-06-14 16:47 | RADIOLOGY REPORT (SQ) ---
EXAM DESCRIPTION: CHEST SINGLE VIEW COMPLETED DATE/TIME: 06/14/2018 4:36 pm REASON FOR STUDY: sob COMPARISON: None. EXAM PARAMETERS: NUMBER OF VIEWS: One view. TECHNIQUE: Single frontal radiographic view of the chest acquired. RADIATION DOSE: NA LIMITATIONS: None. FINDINGS: LUNGS AND PLEURA: No opacities, masses or pneumothorax. No pleural effusion. MEDIASTINUM AND HILAR STRUCTURES: No masses. Contour normal. HEART AND VASCULAR STRUCTURES: Heart normal in size. Normal vasculature. BONES: No acute findings. HARDWARE: None in the chest. OTHER: No other significant finding. IMPRESSION: NO ACUTE RADIOGRAPHIC FINDING IN THE CHEST. TECHNICAL DOCUMENTATION: JOB ID: [id number] [employer]- All Rights Reserved Reading location - IP/workstation name: [email or web address]
[2018-06-14 19:44] VITALS: BP 134/85
[2018-06-14] MEDS ORDERED: CEPHALEXIN 500 MG CAPSULE PO ONE (19:52)
[2018-06-14] MEDS ORDERED: ALBUTEROL SULFATE HFA (90 MCG/PUFF) 8 GM MDI (1 MDI/ER DISP) IH PRN (19:52)
== END 2018-06-14 20:07 | disposition home or self-care (01) ==
LOC: ER 14:47
DX: R56.9 Unspecified convulsions (principal); T42.1X6A Underdosing of iminostilbenes, initial encounter; Z91.128 Patient's intentional underdosing of medication regimen for other reason; Y92.149 Unspecified place in prison as the place of occurrence of the external cause; Z91.14 Patient's other noncompliance with medication regimen; L03.90 Cellulitis, unspecified; S90.02XA Contusion of left ankle, initial encounter; S00.81XA Abrasion of other part of head, initial encounter; M25.572 Pain in left ankle and joints of left foot; V49.9XXA Car occupant (driver) (passenger) injured in unspecified traffic accident, initial encounter; F17.210 Nicotine dependence, cigarettes, uncomplicated; J44.9 Chronic obstructive pulmonary disease, unspecified; R05 Cough; Z23 Encounter for immunization
CPT/HCPCS: 99285; 90471; 96375; 96365; 36415; 83735; 85025; 80053; 73610; 71045; 70450; 90715; J3490 ×2; J2060; J3411

== ENCOUNTER 2018-06-20 11:02 | Emergency (ER) | payer MEDICAID ==
[2018-06-20 11:07] VITALS: BP 146/78
--- NOTE | 2018-06-20 12:00 | RADIOLOGY REPORT (SQ) ---
EXAM DESCRIPTION: CT CERVICAL SPINE WITHOUT COMPLETED DATE/TIME: 06/20/2018 11:33 am REASON FOR STUDY: Neck pain after fall, recent seizure COMPARISON: None. TECHNIQUE: Axial images acquired through the cervical spine without intravenous contrast. Images re viewed with lung, soft tissue and bone windows. Reconstructed coronal and sagittal MPR images review ed. Images stored on PACS. All CT scanners at this facility use dose modulation, iterative reconstruction, and/or weight based d osing when appropriate to reduce radiation dose to as low as reasonably achievable (ALARA). [facility]: Dose Right [facility]: CareDose [facility]: Dose Right [facility]: Teradose 4D [facility]: Smart [employer] RADIATION DOSE: CT Rad equipment meets quality standard of care and radiation dose reduction techniq ues were employed. CTDIvol: 18.9 mGy. DLP: 432 mGy-cm. mGy. LIMITATIONS: None. FINDINGS: ALIGNMENT: Anatomic. MINERALIZATION: Normal. VERTEBRAL BODIES: No fractures or dislocation. DISCS: Moderate loss of the disc height of C5-C6 with small subchondral geodes and small posterior ve rtebral body osteophytes result in mild osseous narrowing of the respective neural foramen. FACETS, LATERAL MASSES, POSTERIOR ELEMENTS: No fractures. No dislocation. No acute findings. HARDWARE: None in the spine. VISUALIZED RIBS: No fractures. LUNG APICES AND SOFT TISSUES: No significant or acute findings. OTHER: No other significant finding. IMPRESSION: 1. No acute fracture or dislocation. 2. Moderate degenerative disc disease of C5-C6. TECHNICAL DOCUMENTATION: JOB ID: [id number] Quality ID # [id number]: Final reports with documentation of one or more dose reduction techniques (e.g., Au tomated exposure control, adjustment of the mA and/or kV according to patient size, use of iterative reconstruction technique) 2010 [employer]- All Rights Reserved Reading location - IP/workstation name: [email or web address]
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
--- NOTE | 2018-06-20 12:04 | RADIOLOGY REPORT (SQ) ---
EXAM DESCRIPTION: SHOULDER LEFT 2 OR MORE VIEWS COMPLETED DATE/TIME: 06/20/2018 11:43 am REASON FOR STUDY: Left arm pain after fall, recent seizure COMPARISON: None. NUMBER OF VIEWS: Three views. TECHNIQUE: Internal rotation, external rotation, and Y view images acquired of the left shoulder. LIMITATIONS: None. FINDINGS: MINERALIZATION: Normal. BONES: No acute fracture or dislocation. No worrisome bone lesions. JOINTS: No dislocation. VISUALIZED LUNGS AND RIBS: Visualized lungs are clear. Multiple old left-sided rib fractures. SOFT TISSUES: No radiopaque foreign body. OTHER: No other significant finding. IMPRESSION: NEGATIVE STUDY OF THE LEFT SHOULDER. NO RADIOGRAPHIC EVIDENCE OF ACUTE INJURY. TECHNICAL DOCUMENTATION: JOB ID: [id number] [employer]- All Rights Reserved Reading location - IP/workstation name: [email or web address]
== END 2018-06-20 12:12 | disposition home or self-care (01) ==
LOC: ER 11:02
DX: M54.12 Radiculopathy, cervical region (principal); M25.512 Pain in left shoulder; M79.622 Pain in left upper arm; F17.200 Nicotine dependence, unspecified, uncomplicated; J44.9 Chronic obstructive pulmonary disease, unspecified
CPT/HCPCS: 72125; 99284

== ENCOUNTER 2020-01-15 14:39 | Emergency (ER) | payer SELFPAY ==
[2020-01-15] MEDS ORDERED: FENTANYL CITRATE INJ/PF 100 MCG/2 ML AMPUL IV ONE (15:28)
--- NOTE | 2020-01-15 15:30 | ER Document Report ---
ED General - General Chief Complaint: Flank Pain Stated Complaint: LEFT SIDE PAIN Time Seen by Provider: 01/15/20 14:50 Primary Care Provider: GADIEL BALDWIN MD [ACTIVE STAFF] - 01/16/20 KRISTI LINARES MD [Primary Care Provider] - 01/16/20 Mode of Arrival: Ambulatory Information source: Patient Notes: Patient presents complaining of left flank pain that wraps around to his abdomen and into the left side of his chest for the past 4 days. Patient states that pain is worse with movement and deep inspiration. Patient is unable to tolerate laying flat as this increases his pain. Patient denies any fever nausea or vomiting. Patient denies any urinary symptoms. Patient states that he did have a seizure about 10 days ago and is concerned that he may have fallen on the coffee table and injured himself. Patient states that he did have blood in his mouth as he had bit his tongue. Patient does have a history of seizure disorder. Patient states he has been compliant with taking his Tegretol. TRAVEL OUTSIDE OF THE [place] IN LAST 30 DAYS: No - HPI Onset: Other - 4 days Onset/Duration: Persistent Quality of pain: Sharp Pain Level: 5 Associated symptoms: Chest pain, Nonproductive cough, Hurts to breath. denies: Diarrhea, Fever, Nausea, Vomiting Exacerbated by: Movement, Coughing, Deep breathing Relieved by: Denies Similar symptoms previously: No Recently seen / treated by doctor: No - Related Data Allergies/Adverse Reactions: phenytoin [From Dilantin] Adverse Reaction (Severe, Verified 04/18/19 12:50) Agranulocystosis Shellfish * [Shellfish] Adverse Reaction (Verified 04/18/19 12:50) bee sting Allergy (Uncoded 04/18/19 12:50) Home Medications: Per patient verbal recall: Tegretol, Albulterol inhaler Past Medical History - General Information source: Patient - Social History Smoking Status: Current Every Day Smoker Frequency of alcohol use: Heavy Drug Abuse: None 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 denies: Fever, Recent illness EENT: No symptoms reported Cardiovascular: Chest pain Respiratory: Cough, Hurts to breathe Gastrointestinal: Abdominal pain. denies: Diarrhea, Nausea, Vomiting Genitourinary: Flank pain Male Genitourinary: No symptoms reported Musculoskeletal: Back pain Skin: No symptoms reported Hematologic/Lymphatic: No symptoms reported Neurological/Psychological: No symptoms reported Physical Exam - Vital signs Vitals: Temp 99 F 01/15/20 14:50 - General General appearance: Appears well, Alert In distress: Mild Notes: Patient unable to tolerate laying in the supine position - HEENT Head: Normocephalic, Atraumatic Eyes: Normal Conjunctiva: Normal Nasal: Normal Mouth/Lips: Normal Mucous membranes: Normal Neck: Normal, Supple. No: Lymphadenopathy - Respiratory Respiratory status: No respiratory distress Chest status: Tender, Pain on movement Breath sounds: Normal Chest palpation: Normal - Cardiovascular Rhythm: Regular Heart sounds: S1 appreciated, S2 appreciated - Abdominal Inspection: Normal Distension: No distension Bowel sounds: Normal Tenderness: Tender - LUQ Organomegaly: No organomegaly - Back Back: CVA tenderness - Left - Extremities General upper extremity: Normal inspection, Nontender, Normal strength General lower extremity: Normal inspection, Nontender, Normal strength - Neurological Neuro grossly intact: Yes Cognition: Normal [place] Coma Scale Eye Opening: Spontaneous [place] Coma Scale Verbal: Oriented [place] Coma Scale Motor: Obeys Commands Chas Coma Scale Total: 15 - Psychological Associated symptoms: Normal affect, Normal mood - Skin Skin Temperature: Warm Skin Moisture: Dry Skin Color: Normal Course - Re-evaluation Re-evalutation: 01/15/20 18:[address] scanner report reviewed. Consulted with Dr. Lloyd regarding patient's results. Recommends consultation with surgicalist to determine if this is something that needs any intervention at this time. Consulted with Dr. Kowalski who reviewed patient's CT images. Dr. Kowalski states that due to the patient's recent fall that he has a traumatic pleural effusion and recommends pain management and likely outpatient treatment at this time. Patient without any fever, chills, leukocytosis or findings worrisome for pneumonia on CT imaging. Consulted again with Dr. Lloyd regarding patient management. Agrees with plan for dispensing incentive spirometer. States that if patient's pain cannot be managed then admission could be considered. 01/15/20 19:20 Patient sitting up on bedside without any dyspnea. Patient with stable vital signs, no leukocytosis, no fever or chills. Discussed findings on CT scan with patient. Patient states that he has had a pleural effusion in the past due to a fall after having a seizure. Patient states previously he had to have a needle aspiration of this area. Discussed plan of care with patient. Patient is agreeable with discharge at this time and feels that his pain symptoms can be managed at home. Patient advised that he will need to use an incentive spirometer no less than once an hour while awake. Patient advised of worsening signs or symptoms that he should return immediately for such as fever, chills, worsening pain symptoms that cannot be controlled, lightheadedness, dizziness, or shortness of breath. Patient encouraged to follow-up with a utility driver and that a number would be provided on his discharge paperwork. - Vital Signs Vital signs: Temp Pulse Resp BP Pulse Ox 99.1 F 90 21 H 138/79 H 96 01/15/20 19:03 01/15/20 14:57 01/15/20 18:00 01/15/20 18:01 01/15/20 18:00 - Laboratory Result Diagrams: 01/15/20 15:50 01/15/20 15:50 Laboratory results interpreted by me: 01/15/20 01/15/20 01/15/20 15:35 15:50 15:50 Lymph % (Auto) 10.6 L [place] % (Auto) 14.0 H Sodium 130.7 L Chloride 96 L Glucose 114 H Urine Blood MODERATE H Urine Urobilinogen 4.0 H Labs- Entire Visit 01/15/20 01/15/20 01/15/20 15:35 15:50 15:50 WBC 9.1 RBC 4.62 Hgb 14.5 Hct 42.3 MCV 92 MCH 31.5 MCHC 34.4 RDW 13.7 Plt Count 192 Lymph % (Auto) 10.6 L [place] % (Auto) 14.0 H Eos % (Auto) 0.2 Baso % (Auto) 0.7 Absolute Neuts (auto) 6.8 Absolute Lymphs (auto) 1.0 Absolute Monos (auto) 1.3 Absolute Eos (auto) 0.0 Absolute Basos (auto) 0.1 Seg Neutrophils % 74.5 Sodium 130.7 L Potassium 4.0 Chloride 96 L Carbon Dioxide 29 Anion Gap 6 BUN 9 Creatinine 0.52 Est GFR ( Amer) > 60 Est GFR (MDRD) Non-Af > 60 Glucose 114 H Calcium 8.6 Magnesium 2.2 Total Bilirubin 0.6 Direct Bilirubin 0.0 Neonat Total Bilirubin Not Reportable Neonat Direct Bilirubin Not Reportable Neonat Indirect Bili Not Reportable AST 27 ALT 28 Alkaline Phosphatase 80 Troponin I Total Protein 6.8 Albumin 3.8 Lipase 49.4 Urine Color [place] Urine Appearance SLIGHTLY-CLOUDY Urine pH 6.0 Ur Specific [place] 1.024 Urine Protein NEGATIVE Urine Glucose (UA) NEGATIVE Urine Ketones NEGATIVE Urine Blood MODERATE H Urine Nitrite NEGATIVE Urine Bilirubin NEGATIVE Urine Urobilinogen 4.0 H Ur Leukocyte Esterase NEGATIVE Urine WBC (Auto) 2 Urine RBC (Auto) 12 Urine Mucus (Auto) FEW Urine Ascorbic Acid NEGATIVE 01/15/20 15:50 WBC RBC Hgb Hct MCV MCH MCHC RDW Plt Count Lymph % (Auto) [place] % (Auto) Eos % (Auto) Baso % (Auto) Absolute Neuts (auto) Absolute Lymphs (auto) Absolute Monos (auto) Absolute Eos (auto) Absolute Basos (auto) Seg Neutrophils % Sodium Potassium Chloride Carbon Dioxide Anion Gap BUN Creatinine Est GFR ( Amer) Est GFR (MDRD) Non-Af Glucose Calcium Magnesium Total Bilirubin Direct Bilirubin Neonat Total Bilirubin Neonat Direct Bilirubin Neonat Indirect Bili AST ALT Alkaline Phosphatase Troponin I < 0.012 Total Protein Albumin Lipase Urine Color Urine Appearance Urine pH Ur Specific [place] Urine Protein Urine Glucose (UA) Urine Ketones Urine Blood Urine Nitrite Urine Bilirubin Urine Urobilinogen Ur Leukocyte Esterase Urine WBC (Auto) Urine RBC (Auto) Urine Mucus (Auto) Urine Ascorbic Acid 01/15/20 19:41 Labs- Entire Visit 01/15/20 01/15/20 01/15/20 15:35 15:50 15:50 WBC 9.1 RBC 4.62 Hgb 14.5 Hct 42.3 MCV 92 MCH 31.5 MCHC 34.4 RDW 13.7 Plt Count 192 Lymph % (Auto) 10.6 L [place] % (Auto) 14.0 H Eos % (Auto) 0.2 Baso % (Auto) 0.7 Absolute Neuts (auto) 6.8 Absolute Lymphs (auto) 1.0 Absolute Monos (auto) 1.3 Absolute Eos (auto) 0.0 Absolute Basos (auto) 0.1 Seg Neutrophils % 74.5 Sodium 130.7 L Potassium 4.0 Chloride 96 L Carbon Dioxide 29 Anion Gap 6 BUN 9 Creatinine 0.52 Est GFR ( Amer) > 60 Est GFR (MDRD) Non-Af > 60 Glucose 114 H Calcium 8.6 Magnesium 2.2 Total Bilirubin 0.6 Direct Bilirubin 0.0 Neonat Total Bilirubin Not Reportable Neonat Direct Bilirubin Not Reportable Neonat Indirect Bili Not Reportable AST 27 ALT 28 Alkaline Phosphatase 80 Troponin I Total Protein 6.8 Albumin 3.8 Lipase 49.4 Urine Color [place] Urine Appearance SLIGHTLY-CLOUDY Urine pH 6.0 Ur Specific [place] 1.024 Urine Protein NEGATIVE Urine Glucose (UA) NEGATIVE Urine Ketones NEGATIVE Urine Blood MODERATE H Urine Nitrite NEGATIVE Urine Bilirubin NEGATIVE Urine Urobilinogen 4.0 H Ur Leukocyte Esterase NEGATIVE Urine WBC (Auto) 2 Urine RBC (Auto) 12 Urine Mucus (Auto) FEW Urine Ascorbic Acid NEGATIVE 01/15/20 15:50 WBC RBC Hgb Hct MCV MCH MCHC RDW Plt Count Lymph % (Auto) [place] % (Auto) Eos % (Auto) Baso % (Auto) Absolute Neuts (auto) Absolute Lymphs (auto) Absolute Monos (auto) Absolute Eos (auto) Absolute Basos (auto) Seg Neutrophils % Sodium Potassium Chloride Carbon Dioxide Anion Gap BUN Creatinine Est GFR ( Amer) Est GFR (MDRD) Non-Af Glucose Calcium Magnesium Total Bilirubin Direct Bilirubin Neonat Total Bilirubin Neonat Direct Bilirubin Neonat Indirect Bili AST ALT Alkaline Phosphatase Troponin I < 0.012 Total Protein Albumin Lipase Urine Color Urine Appearance Urine pH Ur Specific [place] Urine Protein Urine Glucose (UA) Urine Ketones Urine Blood Urine Nitrite Urine Bilirubin Urine Urobilinogen Ur Leukocyte Esterase Urine WBC (Auto) Urine RBC (Auto) Urine Mucus (Auto) Urine Ascorbic Acid - Diagnostic Test Radiology reviewed: Reports reviewed Discharge - Discharge Clinical Impression: Pleural effusion, Flank pain, Seizure disorder Fall Qualifiers: Encounter type: initial encounter Qualified Code(s): W19.XXXA - Unspecified fall, initial encounter Chest pain Qualifiers: Chest pain type: unspecified Qualified Code(s): R07.9 - Chest pain, unspecified Condition: Stable Disposition: HOME, SELF-CARE Instructions: Acetaminophen, Chest Wall Pain ([facility]), Oral Narcotic Medication ([facility]), Pleural Effusion ([facility]) Additional Instructions: Return immediately for any new or worsening symptoms: Worsening pain, fever, chills, shortness of breath, any new or concerning symptoms Followup with your primary care provider, call tomorrow to make a followup appointment Use the incentive spirometer at least every hour, ideally more often while awake Take Tylenol [id number] as needed for pain. You may take the hydrocodone for severe pain. Do not mix these 2 medications together as the hydrocodone does contain Tylenol. Follow-up with a utility driver for further management, call Thursday for follow-up appointment. Prescriptions: Naproxen [Naprosyn 250 Nmg Tablet] 1 tab PO BID #14 tablet Referrals: KRISTI LINARES MD [Primary Care Provider] - 01/16/20 GADIEL BALDWIN MD [ACTIVE STAFF] - 01/16/20
--- NOTE | 2020-01-15 16:01 | RADIOLOGY REPORT (SQ) ---
EXAM DESCRIPTION: CHEST SINGLE VIEW IMAGES COMPLETED DATE/TIME: 01/15/2020 2:43 pm REASON FOR STUDY: cp COMPARISON: 06/14/2018 EXAM PARAMETERS: NUMBER OF VIEWS: One view. TECHNIQUE: Single frontal radiographic view of the chest acquired. RADIATION DOSE: NA LIMITATIONS: None. FINDINGS: LUNGS AND PLEURA: There is a small to moderate left pleural effusion with left basilar ate lectasis/ consolidation. Right lung is clear. No pneumothorax. MEDIASTINUM AND HILAR STRUCTURES: No masses. Contour normal. HEART AND VASCULAR STRUCTURES: Heart normal in size. Normal vasculature. BONES: No acute findings. HARDWARE: None in the chest. OTHER: No other significant finding. IMPRESSION: New small to moderate left pleural effusion with compressive atelectasis/ consolidation at the left lung base. TECHNICAL DOCUMENTATION: JOB ID: [id number] 2010 [employer]- All Rights Reserved Reading location - IP/workstation name: [email or web address]
[2020-01-15 16:15] LABS: ABSOLUTE BASOPHILS # (AUTO) 0.1 10^3/uL (0.0-0.2); ABSOLUTE MONOCYTES (AUTO) 1.3 10^3/uL (0.1-1.4); ABSOLUTE NEUT (AUTO) 6.8 10^3/uL (1.7-8.2); BASOPHILS % (AUTO) 0.7 % (0-2); EOSINOPHILS % (AUTO) 0.2 % (0-6); HEMATOCRIT 42.3 % (37.9-51.0); HEMOGLOBIN 14.5 g/dL (13.5-17.0); LYMPHOCYTES % (AUTO) 10.6 % (13-45); MEAN CORPUSCULAR HEMOGLOBIN 31.5 pg (27.0-33.4); MEAN CORPUSCULAR HGB CONC 34.4 g/dL (32.0-36.0); MEAN CORPUSCULAR VOLUME 92 fl (80-97); PLATELET COUNT 192 10^3/uL (150-450); RED BLOOD COUNT 4.62 10^6/uL (4.35-5.55); RED CELL DISTRIBUTION WIDTH 13.7 % (11.5-14.0); SEGMENTED NEUTROPHILS % (AUTO) 74.5 % (42-78); TOTAL CELLS COUNTED % (AUTO) 100 %; WHITE BLOOD COUNT 9.1 10^3/uL (4.0-10.5)
[2020-01-15 16:32] LABS: ALBUMIN 3.8 g/dL (3.5-5.0); ALKALINE PHOSPHATASE 80 U/L (38-126); ANION GAP 6 (5-19); ASPARTATE AMINO TRANSFERASE 27 U/L (17-59); BILIRUBIN,TOTAL 0.6 mg/dL (0.2-1.3); BLOOD UREA NITROGEN 9 mg/dL (7-20); CALCIUM 8.6 mg/dL (8.4-10.2); CARBON DIOXIDE 29 mmol/L (22-30); CHLORIDE 96 mmol/L (98-107); GLUCOSE 114 mg/dL (75-110); TOTAL PROTEIN 6.8 g/dL (6.3-8.2)
[2020-01-15 16:33] LABS: APPEARANCE,URINE SLIGHTLY-CLOUDY; BILIRUBIN,URINE NEGATIVE (NEGATIVE); COLOR,URINE AMBER; GLUCOSE, URINE NEGATIVE (NEGATIVE); KETONES,URINE NEGATIVE (NEGATIVE); LEUKOCYTE ESTERASE,URINE NEGATIVE (NEGATIVE); NITRITE,URINE NEGATIVE (NEGATIVE); PROTEIN,URINE NEGATIVE (NEGATIVE); URINE SPECIFIC GRAVITY 1.024
[2020-01-15] MEDS ORDERED: NORMAL SALINE 1000 ML 1,000 ML IV ONE (17:07)
--- NOTE | 2020-01-15 18:22 | RADIOLOGY REPORT (SQ) ---
EXAM DESCRIPTION: CT CHEST WITH; CT ABD/PELVIS WITH IV ONLY IMAGES COMPLETED DATE/TIME: 01/15/2020 4:52 pm COMPARISON: CT angiography chest, 09/23/2015 REASON FOR STUDY: L flank, L chest, LUQ pain, ?inj hx fall aftr seiz L flank, L chest, LUQ pain, ?inj hx fall aftr seizure. Right and left lower quadrant pain. CONTRAST TYPE AND DOSE: contrast/concentration: Isovue 350.00 mg/ml; Total Contrast Delivered: 88.0 ml; Total Saline Delivered: 70.0 ml 100 mL Omnipaque 350- low osmolar. RENAL FUNCTION: GFR > 60. TECHNIQUE: CT scan of the chest performed using helical scanning technique with dynamic intravenous contrast injection. Images reviewed with lung, soft tissue and bone windows. Reconstructed coronal a nd sagittal MPR images reviewed. All images stored on PACS. CT scan of the abdomen and pelvis performed with intravenous and oral contrast using helical scanning technique with dynamic intravenous contrast injection. Images reviewed with lung, soft tissue and b one windows. Reconstructed coronal and sagittal MPR images reviewed. Delayed images for evaluation of the urinary system also acquired and evaluated. All images stored on PACS. All CT scanners at this facility use dose modulation, iterative reconstruction, and/or weight based d osing when appropriate to reduce radiation dose to as low as reasonably achievable (ALARA). [facility]: Dose Right [facility]: CareDose [facility]: Dose Right [facility]: Teradose 4D [facility]: [employer] RADIATION DOSE: CT Rad equipment meets quality standard of care and radiation dose reduction techniq ues were employed. CTDIvol: 7.2 - 10.6 mGy. DLP: 1184 mGy-cm. . LIMITATIONS: None. FINDINGS: CHEST: AXILLAE: No adenopathy. CHEST WALL: No masses. No subcutaneous air. LUNGS: Small loculated left pleural effusion. Compressive atelectasis/ consolidation at the left agustin g base. No right effusion or consolidation. No pneumothorax. Trachea has normal caliber and appear ance. PLEURA: No effusions. No calcifications. THYROID: No masses or significant asymmetry. HILAR AND MEDIASTINAL STRUCTURES: No identified masses or abnormal nodes. AORTA AND GREAT VESSELS: No aneurysm. No dissection. PULMONARY ARTERIES: No identified pulmonary emboli. Study not optimized for the pulmonary arteries. HEART: No pericardial effusion. HARDWARE AND LIFELINES: None. BONES: No significant finding. OTHER: No other significant finding. ABDOMEN AND PELVIS: LIVER: The liver has normal size and contour. There is severe diffuse hepatic steatosis. No focal h epatic mass. Hepatic and portal veins are patent. No biliary ductal dilation. SPLEEN: Normal size. No focal lesions. PANCREAS: No masses. No significant calcifications. No adjacent inflammation or peripancreatic flui d collections. Pancreatic duct not dilated. GALLBLADDER: No identified stones by CT criteria. No inflammatory changes to suggest cholecystitis. ADRENAL GLANDS: No significant masses or asymmetry. RIGHT KIDNEY AND URETER: No solid masses. No significant calcifications. No hydronephrosis or hyd roureter. LEFT KIDNEY AND URETER: No solid masses. No significant calcifications. No hydronephrosis or hydr oureter. AORTA AND VESSELS: No aneurysm. No dissection. Renal arteries, SMA, celiac without stenosis. RETROPERITONEUM: No retroperitoneal adenopathy, hemorrhage or masses. LARGE AND SMALL BOWEL: No dilatation. No masses. No wall thickening. APPENDIX: Normal. ABDOMINAL WALL: No hernia or masses. PERITONEAL CAVITY: No free air. No free fluid. No peritoneal implants or masses. PELVIS: No mass or free fluid. Normal bladder. BONES: No significant or acute findings. OTHER: No other significant finding. IMPRESSION: 1. Small loculated left pleural effusion with compressive atelectasis at the lung base. 2. Severe hepatic steatosis. TECHNICAL DOCUMENTATION: JOB ID: [id number] Quality ID # [id number]: Final reports with documentation of one or more dose reduction techniques (e.g., Au tomated exposure control, adjustment of the mA and/or kV according to patient size, use of iterative reconstruction technique) 2010 [employer]- All Rights Reserved Reading location - IP/workstation name: [email or web address]
[2020-01-15] MEDS ORDERED: HYDROCODONE/ACETAMINOPHEN 5-325 MG (6 TAB/ER DISP) PO PRN (19:28)
[2020-01-15 19:52] VITALS: BP 116/83
--- NOTE | 2020-01-16 07:25 | EKG REPORT ---
SEVERITY:- NORMAL ECG - SINUS RHYTHM : Confirmed by: Derek Bhandari MD 16-Jan-2020 07:23:59
== END 2020-01-15 19:52 | disposition home or self-care (01) ==
LOC: ER 14:39
DX: J90 Pleural effusion, not elsewhere classified (principal); R10.9 Unspecified abdominal pain; R07.9 Chest pain, unspecified; R07.1 Chest pain on breathing; W19.XXXA Unspecified fall, initial encounter; J44.9 Chronic obstructive pulmonary disease, unspecified; R10.812 Left upper quadrant abdominal tenderness; R05 Cough; F17.200 Nicotine dependence, unspecified, uncomplicated; G40.909 Epilepsy, unspecified, not intractable, without status epilepticus; Z79.899 Other long term (current) drug therapy; Z91.030 Bee allergy status
CPT/HCPCS: 93005; 99284; 96361; 96374; 36415; 83690; 83735; 85025; 80053; 81001; 84484; 71045; 71260; 74177; 93010; J3010; J7030

== ENCOUNTER 2020-04-20 12:30 | Emergency (ER) | payer SELFPAY ==
--- NOTE | 2020-04-20 13:39 | ER Document Report ---
ED Medical Screen (RME) - General Chief Complaint: Leg Swelling Stated Complaint: RIGHT LEG SWELLING Time Seen by Provider: 04/20/20 13:31 Primary Care Provider: KRISTI LINARES MD [Primary Care Provider] - Follow up as needed TRAVEL OUTSIDE OF THE [place] IN LAST 30 DAYS: No - HPI Notes: 04/20/20 13:36 44-year-old male with a history of epilepsy on Tegretol presents emergency room for complaints of right leg and calf pain with swelling for the last week. Patient is concerned that he may have a blood clot, denies any history of blood clots, long car rides, plane flights, recent surgery, cancer treatments. Patient reports swelling does get better with elevation however when he is standing throughout the day only his right leg becomes swollen, states his left leg is not painful and not swollen. Denies any fevers chills, chest pain, shortness of breath, nausea vomiting or diarrhea. Denies any trauma or recent injury to right lower extremity. I have greeted and performed a rapid initial assessment of this patient. A comprehensive ED assessment and evaluation of the patient, analysis of test results and completion of the medical decision making process will be conducted by additional ED providers. PHYSICAL EXAMINATION: GENERAL: Well-appearing, well-nourished and in no acute distress. CV: s1, s2 regular LUNGS: No respiratory distress Musculoskeletal: Normal range of motion NEUROLOGICAL: Normal speech, normal gait. SKIN: Warm, Dry, normal turgor, no rashes or lesions noted. + homans sign on right. Noted edema to right lower extremity, nonpitting. Distal pulses +2 bilateral lower extremities equally. - Related Data Allergies/Adverse Reactions: phenytoin [From Dilantin] Adverse Reaction (Severe, Verified 04/20/20 13:32) Agranulocystosis Shellfish * [Shellfish] Adverse Reaction (Verified 04/20/20 13:32) bee sting Allergy (Uncoded 04/20/20 13:32) Past Medical History - Social History Chew tobacco use (# tins/day): No Drug Abuse: None Pulmonary Medical History: Reports: Hx Asthma, Hx COPD Neurological Medical History: Reports: Hx Seizures Renal/ Medical History: Denies: Hx Peritoneal Dialysis Past Surgical History: Reports: Hx Orthopedic Surgery - Left foot - Immunizations Hx Diphtheria, Pertussis, Tetanus Vaccination: Yes Physical Exam - Vital signs Vitals: Temp Pulse Resp BP Pulse Ox 98.4 F 92 20 147/85 H 98 04/20/20 12:34 04/20/20 12:34 04/20/20 12:34 04/20/20 12:34 04/20/20 12:34 Course - Vital Signs Vital signs: Temp Pulse Resp BP Pulse Ox 98.4 F 92 20 147/85 H 98 04/20/20 12:34 04/20/20 12:34 04/20/20 12:34 04/20/20 12:34 04/20/20 12:34 Doctor's Discharge - Discharge Referrals: KRISTI LINARES MD [Primary Care Provider] - Follow up as needed
[2020-04-20 14:11] LABS: ABSOLUTE BASOPHILS # (AUTO) 0.1 10^3/uL (0.0-0.2); ABSOLUTE EOSINOPHILS # (AUTO) 0.3 10^3/uL (0.0-0.6); ABSOLUTE LYMPHOCYTES (AUTO) 1.4 10^3/uL (0.5-4.7); ABSOLUTE MONOCYTES (AUTO) 0.8 10^3/uL (0.1-1.4); ABSOLUTE NEUT (AUTO) 5.2 10^3/uL (1.7-8.2); BASOPHILS % (AUTO) 1.2 % (0-2); EOSINOPHILS % (AUTO) 3.4 % (0-6); HEMATOCRIT 45.8 % (37.9-51.0); HEMOGLOBIN 15.7 g/dL (13.5-17.0); LYMPHOCYTES % (AUTO) 18.2 % (13-45); MEAN CORPUSCULAR HEMOGLOBIN 31.1 pg (27.0-33.4); MEAN CORPUSCULAR HGB CONC 34.3 g/dL (32.0-36.0); MEAN CORPUSCULAR VOLUME 91 fl (80-97); MONOCYTES % (AUTO) 10.5 % (3-13); PLATELET COUNT 219 10^3/uL (150-450); RED BLOOD COUNT 5.04 10^6/uL (4.35-5.55); RED CELL DISTRIBUTION WIDTH 13.9 % (11.5-14.0); SEGMENTED NEUTROPHILS % (AUTO) 66.7 % (42-78); TOTAL CELLS COUNTED % (AUTO) 100 %; WHITE BLOOD COUNT 7.8 10^3/uL (4.0-10.5)
[2020-04-20 14:42] LABS: ALKALINE PHOSPHATASE 111 U/L (38-126); ASPARTATE AMINO TRANSFERASE 38 U/L (17-59); BILIRUBIN,TOTAL 0.7 mg/dL (0.2-1.3); BLOOD UREA NITROGEN 5 mg/dL (7-20); CALCIUM 8.8 mg/dL (8.4-10.2); CARBON DIOXIDE 31 mmol/L (22-30); CHLORIDE 101 mmol/L (98-107); GLUCOSE 77 mg/dL (75-110); POTASSIUM 4.3 mmol/L (3.6-5.0); TOTAL PROTEIN 7.1 g/dL (6.3-8.2)
[2020-04-20 14:48] LABS: ANION GAP 3 (5-19)
--- NOTE | 2020-04-20 16:01 | RADIOLOGY REPORT (SQ) ---
EXAM DESCRIPTION: VENOUS UNILATERAL LOWER IMAGES COMPLETED DATE/TIME: 04/20/2020 3:48 pm REASON FOR STUDY: right calf pain x 1 week w/ leg swelling COMPARISON: None. TECHNIQUE: Dynamic and static knott scale and color images acquired of the right leg venous system. S elected spectral images acquired with additional compression and augmentation maneuvers. The contrala teral common femoral vein and saphenofemoral junction were also imaged. Images stored on PACS. LIMITATIONS: None. FINDINGS: COMMON FEMORAL: Normal phasicity, compression and augmentation. No visualized echogenic ma terial on knott scale. No defects on color images. FEMORAL: There is DVT in the distal femoral vein. Mid and proximal femoral vein are patent. POPLITEAL: Largely occlusive thrombus in the popliteal vein. CALF VESSELS: There is calf DVT as well involving the gastrocnemius vein in 1 of 2 posterior tibial v eins. GSV and SSV: Normal compression, augmentation. No visualized echogenic material on knott scale. No def ects on color images. ANY DEEP VENOUS INSUFFICIENCY: Not evaluated. ANY EVIDENCE OF POPLITEAL CYST: No. OTHER: No other significant finding. CONTRALATERAL COMMON FEMORAL VEIN AND SAPHENOFEMORAL JUNCTION: Normal phasicity, compression and augmentation. No visualized echogenic material on knott scale. No de fects on color images. IMPRESSION: Right lower extremity DVT with involvement of 2 calf veins, the popliteal vein and dista l femoral vein. COMMENT: This report was called to GEMINI ALVARADO at15:54 on 04/20/2020. Report was called by bassem fan robotics technologist. TECHNICAL DOCUMENTATION: JOB ID: [id number] 2010 [employer]- All Rights Reserved Reading location - IP/workstation name: [email or web address]
[2020-04-20] MEDS ORDERED: NORMAL SALINE 1000 ML 1,000 ML IV ONE (16:33)
[2020-04-20 16:46] LABS: INTERNATIONAL RATION (INR) 0.86; PROTHROMBIN TIME 11.9 SEC (11.4-15.4)
[2020-04-20 16:49] LABS: D-DIMER 3.17 ug/mL (0.00-0.50)
[2020-04-20] MEDS ORDERED: HEPARIN SOD (PORCINE) 1,000 UNIT/ML 10 ML VIAL IV PRN (17:00)
[2020-04-20] MEDS ORDERED: HEPARIN SODIUM,PORCINE/D5W 25,000 UNIT/250 ML RTUINJ IV PRN (17:00)
--- NOTE | 2020-04-20 17:10 | RADIOLOGY REPORT (SQ) ---
EXAM DESCRIPTION: CTA CHEST IMAGES COMPLETED DATE/TIME: 04/20/2020 4:44 pm REASON FOR STUDY: Positive DVT COMPARISON: 01/15/2020 TECHNIQUE: CT scan of the chest performed using helical scanning technique with dynamic intravenous contrast injection. Images reviewed with lung, soft tissue and bone windows. Reconstructed coronal and sagittal MPR images reviewed. Additional 3 dimensional post-processing performed to develop Maximal Intensity Projection images (NM P). All images stored on PACS. All CT scanners at this facility use dose modulation, iterative reconstruction, and/or weight based d osing when appropriate to reduce radiation dose to as low as reasonably achievable (ALARA). [facility]: Dose Right [facility]: CareDose [facility]: Dose Right [facility]: Teradose 4D [facility]: [employer] CONTRAST TYPE AND DOSE: contrast/concentration: Isovue 350.00 mmol/ml; Total Contrast Delivered: 60. 0 ml; Total Saline Delivered: 80.0 ml Contrast bolus adequate for pulmonary arteries and aorta. RENAL FUNCTION: BUN 5 creatinine 0.63 RADIATION DOSE: CT Rad equipment meets quality standard of care and radiation dose reduction techniq ues were employed. CTDIvol: 9.9 - 14.3 mGy. DLP: 546 mGy-cm. . LIMITATIONS: BUN 5 creatinine 0.63 FINDINGS: LUNGS AND PLEURA: Small persistent left pleural effusion. No infiltrate or mass. AORTA AND GREAT VESSELS: No aneurysm. No dissection. HEART: No pericardial effusion. No significant coronary artery calcifications. PULMONARY ARTERIES: Bilateral pulmonary emboli. On the left this is at the bifurcation of the left m ain pulmonary artery. On the right is in the lower lobe branches. HILAR AND MEDIASTINAL STRUCTURES: No identified masses or abnormal nodes. HARDWARE: None in the chest. UPPER ABDOMEN: No significant findings. Limited exam. THYROID AND OTHER SOFT TISSUES: No masses. No adenopathy. BONES: No acute or significant finding. 3D MIPS: Confirm above findings. OTHER: No other significant finding. IMPRESSION: Bilateral pulmonary emboli as described. Persistent small left pleural effusion. COMMENT: Quality ID # 436: Final reports with documentation of one or more dose reduction techniques (e.g., Automated exposure control, adjustment of the mA and/or kV according to patient size, use of iterative reconstruction technique) TECHNICAL DOCUMENTATION: JOB ID: [id number] 2010 [employer]- All Rights Reserved Reading location - IP/workstation name: [email or web address]
--- NOTE | 2020-04-20 18:42 | ER Document Report ---
Entered by EMILIANO FLORES SCRIBE 04/20/20 1517 Acting as scribe for:RITU YUAN MD ED Extremity Problem, Lower - General Chief Complaint: Leg Swelling Stated Complaint: RIGHT LEG SWELLING Time Seen by Provider: 04/20/20 13:31 Primary Care Provider: KRISTI LINARES MD [NO LOCAL MD] - Follow up as needed Information source: Patient Notes: This 44 year old male patient presents to the emergency department today with complaints of right lower extremity swelling and pain for the last week. Patient notices that the pain increases and the swelling increases when he stands up. Patient states he has not had any recent long trips, history of PE/DVT, chest pain, or shortness of breath. TRAVEL OUTSIDE OF THE [place] IN LAST 30 DAYS: No - Related Data Allergies/Adverse Reactions: phenytoin [From Dilantin] Adverse Reaction (Severe, Verified 04/20/20 13:32) Agranulocystosis Shellfish * [Shellfish] Adverse Reaction (Verified 04/20/20 13:32) bee sting Allergy (Uncoded 04/20/20 13:32) Past Medical History - General Information source: Patient - Social History Smoking Status: Current Every Day Smoker Cigarette use (# per day): Yes Chew tobacco use (# tins/day): No Frequency of alcohol use: None Drug Abuse: None Lives with: Family Family History: Reviewed & Not Pertinent, DM Patient has homicidal ideation: No Pulmonary Medical History: Reports: Hx Asthma, Hx COPD Neurological Medical History: Reports: Hx Seizures Past Surgical History: Reports: Hx Orthopedic Surgery - Left foot - Immunizations Hx Diphtheria, Pertussis, Tetanus Vaccination: Yes Review of Systems - Review of Systems Constitutional: No symptoms reported EENT: No symptoms reported Cardiovascular: denies: Chest pain Respiratory: denies: Short of breath Gastrointestinal: No symptoms reported Genitourinary: No symptoms reported Male Genitourinary: No symptoms reported Musculoskeletal: See HPI, Other - RLE swelling, calf pain Skin: No symptoms reported Hematologic/Lymphatic: No symptoms reported Neurological/Psychological: No symptoms reported -: Yes All other systems reviewed and negative Physical Exam - Vital signs Vitals: Temp Pulse Resp BP Pulse Ox 98.4 F 92 20 147/85 H 98 04/20/20 12:34 04/20/20 12:34 04/20/20 12:34 04/20/20 12:34 04/20/20 12:34 - Notes Notes: Physical Exam: General: Alert, appears well. HEENT: Normocephalic. Atraumatic. PERRL. Extraocular movements intact. Oropharynx clear. Neck: Supple. Non-tender. Respiratory: No respiratory distress. Expiratory wheezing bilaterally. Cardiovascular: Regular rate and rhythm. Abdominal: Normal Inspection. Non-tender. No distension. Normal Bowel Sounds. Back: No gross abnormalities. Extremities: Moves all four extremities. Upper extremities: Normal inspection. Normal ROM. Lower extremities: RLE swelling and calf tenderness suspicious for DVT Neurological: Normal cognition. AAOx4. Normal speech. Psychological: Normal affect. Normal Mood. Skin: Warm. Dry. Normal color. Course - Re-evaluation Re-evalutation: 04/20/20 18:32 Patient resting comfortably not showing signs of distress at the moment. - Vital Signs Vital signs: Temp Pulse Resp BP Pulse Ox 98.4 F 92 14 147/85 H 96 04/20/20 12:34 04/20/20 12:34 04/20/20 17:38 04/20/20 12:34 04/20/20 17:38 04/20/20 18:31 Vital signs stable no acute process - Laboratory Result Diagrams: 04/20/20 13:46 04/20/20 13:46 Laboratory results interpreted by me: 04/20/20 04/20/20 13:46 13:46 D-Dimer 3.17 H Sodium 135.4 L Carbon Dioxide 31 H Anion Gap 3 L BUN 5 L 04/20/20 18:34 Laboratory shows a elevated d-dimer. Otherwise labs on no unremarkable - Diagnostic Test Radiology reviewed: Image reviewed, Reports reviewed Radiology results interpreted by me: 04/20/20 18:35 Venous Doppler ultrasound study of right lower extremity shows deep vein thrombosis in the distal femoral and the popliteal vein. 04/20/20 18:36 CT angiogram of chest shows bilateral pulmonary emboli. Critical Care Note - Critical Care Note Total time excluding time spent on procedures (mins): 45 - IV fluid management diagnostic scans including CT scan of the chest and Doppler study of the lower extremity to determine extent of thrombotic disease and patient showing bilateral pulmonary emboli and right lower extremity DVT. Discussion with radiologist and hospitalist regarding objective findings on this work-up. And discussing with hospitalist regarding admission. Discharge - Discharge Clinical Impression: Bilateral pulmonary embolism, Deep vein thrombosis of right lower extremity, Suspected COVID-19 virus infection Condition: Fair Disposition: ADMITTED INPATIENT Unit Admitted: IMCU Referrals: KRISTI LINARES MD [NO LOCAL MD] - Follow up as needed I personally performed the services described in the documentation, reviewed and edited the documentation which was dictated to the scribe in my presence, and it accurately records my words and actions.
--- NOTE | 2020-04-20 19:09 | PDOC CONSULTATION ---
Consultation Consult Date: 04/20/20 Attending physician:: RITU YUAN Provider Consulted: DAMIAN RICHEY Consult reason:: Assess for admission History of Present Illness Admission Date/PCP: 04/20/20 18:50 Patient complains of: Leg swelling with shortness of breath History of Present Illness: MARTA GARCIA is a 44 year old male smoker who noticed swelling in his right leg 7 days ago. He did have intermittent shortness of breath but felt that it was his asthma. He used his inhalers and got some relief. His leg was still swollen and after a week he was strongly urged by family to be assessed at the hospital. Vital signs are stable. CBC and chemistries are unremarkable. CT angiogram did show bilateral pulmonary emboli in the right leg swelling is clearly indicative of a DVT. Unfortunately by waiting he may have allowed the bilateral pulmonary emboli to occur whereas early attention may have resulted in just a DVT or possibly a single PE. Past Medical History Pulmonary Medical History: Reports: Asthma, Chronic Obstructive Pulmonary Disease (COPD) EENT Medical History: Reports: None Neurological Medical History: Reports: Seizures Endocrine Medical History: Reports: None Renal/ Medical History: Reports: None Malignancy Medical History: Reports: None GI Medical History: Reports: None Musculoskeltal Medical History: Denies: Arthritis, Gout Psychiatric Medical History: Reports: Tobacco Dependency Denies: Alcohol Dependency, Substance Abuse Hematology: Denies: Anemia, Heparin Induced Thrombocytopenia Infectious Medical History: Reports: None Past Surgical History Past Surgical History: Reports: Orthopedic Surgery - Left foot Social History Information Source: Patient Lives with: Family Smoking Status: Current Every Day Smoker Electronic Cigarette use?: No Frequency of Alcohol Use: Heavy Hx Recreational Drug Use: No Hx Prescription Drug Abuse: No - Advance Directive Resuscitation Status: Full Code Family History Family History: CAD, DM, Hypertension Parental Family History Reviewed: Yes Children Family History Reviewed: Yes Sibling(s) Family History Reviewed.: Yes Medication/Allergy Home Medications: Albuterol Sulfate [Proair HFA] 2 puff IH Q6HP PRN 05/04/17 Carbamazepine [Tegretol] 200 mg PO Q12 05/04/17 Albuterol Sulfate [Ventolin Hfa 8 gm Mdi (1 Mdi/ER Disp)] 2 puff IH Q6HP PRN #1 inhaler 05/05/17 Aspirin [Ecotrin 325 mg EC Tablet] 325 mg PO DAILY #90 tabec 08/22/17 Doxycycline Hyclate [Vibramycin 100 mg Tablet] 100 mg PO Q12 #20 tablet 05/05/17 Fluticasone Propionate [Flonase Nasal [place] 50 Mcg/[place] 16 gm] 1 spray NASL Q12 #1 bot 05/05/17 Folic Acid [Folvite 1 mg Tablet] 1 mg PO DAILY #90 tablet 05/05/17 Ipratropium/Albuterol Sulfate [Duoneb 3 ml Ampul] 3 ml [facility] [id number] vial.neb 05/05/17 Loratadine [Claritin 10 mg Tablet] 10 mg PO QHS #90 tablet 05/05/17 Prednisone 10 mg PO ASDIR PRN #1 tab.ds.pk 05/05/17 Thiamine HCl [Thiamine 100 mg Tablet] 100 mg PO DAILY #90 tablet 05/05/17 Cephalexin Monohydrate [Keflex 500 mg Capsule] 500 mg PO QID #40 capsule 06/14/18 Methocarbamol [Robaxin 500 Mg Tablet] 500 mg PO QID PRN #20 tablet 06/20/18 Naproxen [Naprosyn 250 Nmg Tablet] 1 tab PO BID #14 tablet 06/20/18 Famotidine [Pepcid 20 mg Tablet] 20 mg PO DAILY #12 tablet 04/18/19 Naproxen [Naprosyn 250 Nmg Tablet] 1 tab PO BID #14 tablet 01/15/20 Apixaban [Eliquis 5 mg Tablet] 5 mg PO ASDIR PRN 28 Days #74 tablet 04/20/20 Allergies/Adverse Reactions: phenytoin [From Dilantin] Adverse Reaction (Severe, Verified 04/20/20 13:32) Agranulocystosis Shellfish * [Shellfish] Adverse Reaction (Verified 04/20/20 13:32) bee sting Allergy (Uncoded 04/20/20 13:32) Review of Systems All systems: reviewed and no additional remarkable complaints except as stated Cardiovascular: PRESENT: edema - Right leg Respiratory: PRESENT: dyspnea - Intermittent Physical Exam Vital Signs: Temp Pulse Resp BP Pulse Ox 98.4 F 92 14 147/85 H 96 04/20/20 12:34 04/20/20 12:34 04/20/20 17:38 04/20/20 12:34 04/20/20 17:38 Intake & Output 04/19/20 04/20/20 04/21/20 06:59 06:59 06:59 Intake Total 1000 Balance 1000 Weight 81.3 kg General appearance: PRESENT: no acute distress, cooperative, well-developed, well-nourished Head exam: PRESENT: atraumatic, normocephalic Eye exam: PRESENT: conjunctiva pink. ABSENT: scleral icterus Ear exam: PRESENT: normal external ear exam. ABSENT: bleeding, drainage Mouth exam: PRESENT: moist, tongue midline Neck exam: ABSENT: carotid bruit, JVD, lymphadenopathy Respiratory exam: PRESENT: symmetrical, unlabored, wheezes - Sporadic occasional wheeze. ABSENT: accessory muscle use, prolonged expiratory phas, rales, rhonch i, stridor, tachypnea Cardiovascular exam: PRESENT: RRR, +S1, +S2, systolic murmur - 2/6. ABSENT: bradycardia, diastolic murmur, irregular rhythm GI/Abdominal exam: PRESENT: normal bowel sounds, soft. ABSENT: distended, mass, tenderness Rectal exam: PRESENT: deferred Gentrourinary exam: ABSENT: indwelling catheter Extremities exam: PRESENT: +1 edema - Right leg Musculoskeletal exam: PRESENT: ambulatory, full ROM. ABSENT: deformity, dislocation Neurological exam: PRESENT: alert, awake, oriented to person, oriented to place, oriented to time, oriented to situation, CN II-XII grossly intact. ABSENT: altered, motor sensory deficit Psychiatric exam: PRESENT: appropriate affect, normal mood. ABSENT: agitated, anxious Focused psych exam: ABSENT: delusional, paranoid, restlessness Skin exam: PRESENT: dry, warm. ABSENT: rash Results Laboratory Results: 04/20/20 13:46 04/20/20 13:46 04/20/20 04/20/20 13:46 13:46 WBC 7.8 RBC 5.04 Hgb 15.7 Hct 45.8 MCV 91 MCH 31.1 MCHC 34.3 RDW 13.9 Plt Count 219 Seg Neutrophils % 66.7 Sodium 135.4 L Potassium 4.3 Chloride 101 Carbon Dioxide 31 H Anion Gap 3 L BUN 5 L Creatinine 0.63 Est GFR ( Amer) > 60 Glucose 77 Calcium 8.8 Total Bilirubin 0.7 AST 38 Alkaline Phosphatase 111 Total Protein 7.1 Albumin 4.0 Impressions: Venous Doppler Study 04/20/20 13:35 IMPRESSION: Right lower extremity DVT with involvement of 2 calf veins, the popliteal vein and distal femoral vein. Chest/Abdomen CTA 04/20/20 16:16 IMPRESSION: Bilateral pulmonary emboli as described. Persistent small left pleural effusion. Assessment and Plan - Diagnosis (1) Bilateral pulmonary embolism Is this a current diagnosis for this admission?: Yes Plan: Please see CT angiogram report for details. Bilateral pulmonary emboli present. The patient is hemodynamically stable with oxygen saturation 100% on room air, normal blood pressure and pulse as well as normal respiratory rate. Following the up-to-date pathway on pulmonary emboli and hemodynamically stable patient the patient meets the criteria for discharge on direct oral anticoagulant therapy. The patient was anxious to leave and is in agreement with this plan. He will be started on apixaban. He will take 10 mg twice daily for 7 days and then 5 mg twice daily. He needs to see his primary care provider Dr. Page for ongoing care and to determine the full extent of treatment. I explained to him that this would likely be 6 months. (2) Deep vein thrombosis of right lower extremity Qualifiers: Affected thrombotic vein of extremity: popliteal Chronicity: acute Qualified Code(s): I82.431 - Acute embolism and thrombosis of right popliteal vein Is this a current diagnosis for this admission?: Yes Plan: Patient actually has involvement of 2 calf veins, the popliteal vein and distal femoral vein. He notes that the swelling started 7 days ago. At this point when he elevates his leg the swelling goes down and in a dependent position the swelling recurs. The calf is soft and is not having any pain. (3) Tobacco abuse Is this a current diagnosis for this admission?: Yes Plan: Despite a history of asthma the patient still smokes. It is likely that there is a component of COPD but no pulmonary function studies are available or have been performed. On several occasions I encouraged patient to stop smoking. - Plan Summary Summary: The patient will be discharged home. I placed the discharge order. Prescription for a 30-day supply of apixaban including the initial higher dose for 7 days was sent to the [facility] pharmacy on [address]. - Time Time Spent with patient: 35 or more minutes Smoking Cessation Education: 3 to 10 minutes Medications reviewed and adjusted accordingly: Yes Anticipated Discharge Disposition: Home, Self Care Anticipated Discharge Timeframe: within 24 hours
[2020-04-20] MEDS ORDERED: APIXABAN 5 MG TABLET PO ONE (19:30)
[2020-04-20 20:04] VITALS: BP 142/98
--- NOTE | 2020-04-21 11:01 | Progress Note ---
Provider Note Provider Note: 04/21/2020 Received call from [facility] pharmacy. The cost for Mr. Rivera without insurance would be over $600. I called the patient and spoke to the patient and his . The only affordable option would be warfarin. I explained the absolute need to have blood tests regularly. The patient states that his disab ility and Medicaid were taken from him. He is reapplying. His mother has set him up at [facility] in [place] in the past. I explained that I would give him 2 weeks of 5 mg warfarin daily and he will have to follow-up at [facility] as he will need blood tests and anticoagulation for at least 3 months possibly 6 months. The patient's verbalized understanding. I also went through some precautions with warfarin and when I spoke to the pharmacist the pharmacist will also provide educational material for the patient.
== END 2020-04-20 20:04 | disposition home or self-care (01) ==
LOC: ER 12:30 → EH 18:50 → UNDOADMIN 18:50 → EH 20:04 → UNDODISIN 21:07 → EH 21:20
DX: I82.401 Acute embolism and thrombosis of unspecified deep veins of right lower extremity (principal); I26.99 Other pulmonary embolism without acute cor pulmonale; M79.89 Other specified soft tissue disorders; Z20.828 Contact with and (suspected) exposure to other viral communicable diseases; Z88.0 Allergy status to penicillin; Z88.8 Allergy status to other drugs, medicaments and biological substances; F17.210 Nicotine dependence, cigarettes, uncomplicated; J44.9 Chronic obstructive pulmonary disease, unspecified
CPT/HCPCS: 96376; 99291; 96365; 36415; 85025; 85610; 85730; 87635; 80053; 85379; 93971; 71275; J1644 ×2; J7030; C9803